=== PATIENT | female | born 1965 | race Caucasian/White ===

== ENCOUNTER 2018-07-17 03:25 | Outpatient (CLI) | payer OTHER, SELFPAY ==
[2018-07-17 11:10] LABS: Hemoglobin A1C 5.8 % (4.5-6.2)
== END 2018-07-17 03:26 ==
PROVIDERS: PCP Nurse Practitioner Family; Visit Provider Nurse Practitioner Family
DX: R73.03 Prediabetes (principal)
CPT/HCPCS: 36415; 83036

== ENCOUNTER 2018-09-20 11:54 | Emergency (ER) | payer OTHER, SELFPAY ==
[2018-09-20] VITALS (30 sets, daily range): BP systolic 85–150; BP diastolic 53–84; PULSE 67–82; RESP 9–26; TEMP 36; O2SAT 96–99
[2018-09-20] MEDS: Normal Saline 1,000 ML 1000 ML IV (12:35)
--- NOTE | 2018-09-20 12:37 | DI.CT_ITS ---
SYMPTOM/DIAGNOSIS: GALLO CT BRAIN: Noncontrast examination. No priors. A noncontrast cranial CT was performed. The ventricular system is normal in appearance. There is no evidence of an intracranial mass lesion. There is no evidence of a subdural or epidural hematoma. No focal areas of decreased attenuation are seen. CONCLUSION: Normal noncontrast Cranial CT.
--- NOTE | 2018-09-20 12:37 | W.ED.GENAD ---
Discharge Plan Disposition Patient Disposition: HOME Condition: Fair Discharge Details Chief Complaint: Headache Clinical Impression: Headache Reason For Visit: head ache Primary Care Provider: Carol Kruger ED Provider: Sparkle Espinoza Home Meds and New Rx's Prescriptions: New ondansetron HCl [Zofran] 4 mg tablet 4 mg PO QID PRN (Reason: nausea and vomiting) Qty: 10 RF: 0 Continue ibuprofen 200 MG capsule 200 mg PO PRN RF: 0 kwyaqlry-qvt-ZA-lycopen-lutein [Centrum Silver] 1 EACH tablet 1 ea PO DAILY RF: 0 fluticasone 16 GM spray,suspension 1 spray NS BID PRNQty: 1 RF: 0 levothyroxine 75 MCG tablet 75 mcg PO DAILY Qty: 90 RF: 1 levothyroxine 88 MCG tablet 88 mcg PO as directed Qty: 90 RF: 1 venlafaxine 75 MG capsule,extended release 24hr 2 cap PO DAILY Qty: 270 RF: 4 [id number]-LG-zjytmxkerwbxj [Day Multi-Symp Flu-Severe Cold] 10-20-500 mg Powder In Packet RF: 0 Discharge Instructions Instructions: General Headache (ED) Additional Instructions: Encourage hydration. Tylenol and/or ibuprofen as needed for discomfort. Your next due for ibuprofen 9 PM. Zofran as prescribed to help with nausea or vomiting if this recurs. Please follow-up with your primary care this week to discuss her headaches. As discussed, if you develop new or worsening symptoms such as inability to stay hydrated, increased pain, fevers or chills, increased pain with movement of her neck or other new/worsening symptoms please seek care immediately once again. Stand Alone Forms: Work Release Referrals: Carol Kruger NP [Primary Care Provider] - Discharge Data Discharge Date/Time-TO BE ENTERED AT DEPARTURE: 09/20/18 17:13 Medical Decision Making Patient is a 53-year-old female, accompanied by significant other, with chief complaint of headache. She reports that she has had severe headache like this previously. States that headache began 2-3 days ago. She reports she stood up from a headache had a fairly sudden onset and progressively increase. Reports is been constant since that time. States that typically she uses ibuprofen for headache which works well for discomfort. However, despite this effort at this point she is not having success in alleviating her symptoms. She also endorsing nausea. Denies any vomiting. Reports that she has had diarrhea but that this is a chronic issue Bernardo the past several years. Reports that her headache is mainly frontal and endorses photophobia and phonophobia. Reports that the pain radiates down into her neck. Denies any fevers or chills. No rash. No recent travel out of the country. On exam, pupils are equal round and reactive. Patient is moving all 4 extremities. She does appear uncomfortable. She appears dehydrated. Is currently endorsing nausea. Diphenhydramine is listed as an allergy. However, patient reports that this causes a large amount of fatigue and is agreeable to taking this at this time if it will help with her headache. Patient will be given Reglan and Benadryl. We will hold off on Toradol until after CT scan has been obtained. Given the radiation of pain into her neck, I also considered possible diagnosis of meningitis on the patient does not appear acutely ill. Rather, she just appears uncomfortable. She is afebrile and reports she is been afebrile at home. Vital signs notable for some hypertension with a blood pressure 150/81. 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 She is status post hysterectomy. EKG reviewed by Dr. Parker. Patient is in normal sinus rhythm with a rate of 72. Advised no acute ischemic changes noted. Limited evaluation without significant abnormality. CT reviewed by radiologist. Advised no acute hemorrhage, no mass-effect, no acute intracranial pathology Discussed findings with the patient and her . At this point, she is sitting up with her eyes more open and is speaking quite clearly with more vigor. She reports that the Reglan and Benadryl did seem to help with her headache. Reports that her pain is now to a 7 out of 10 set of a 10 out of 10, nausea has completely subsided. The CT did not show any acute pathology, will give Toradol. Discussed LP with the patient as I am concerned for possible infectious source given her neck pain versus bleeding given the sudden onset. However, the patient is now able to clarify more for me. She reports that she has had headaches like this previously. States that many of them have come on much more abruptly than the one she is currently experiencing. Reports that during 1 of these episodes, she had previous LP with no abnormality noted. Patient reports that she is afebrile. States that typically her headache often starts with posterior neck pain that comes up the back of the head and then wraps around. No nuchal rigidity on exam. Again, patient appears nontoxic. We will augment her medication with Toradol and reassess. After Toradol, patient is requesting discharge. Feels much improved. Again, we discussed risk versus benefits of lumbar puncture and patient continues to feel that she does not need this at this time. However, she lives locally with her is able to seek care immediately if she develops any new or worsening symptoms. He was given strict return precautions. Encouraged hydration. She will continue with Tylenol and/or ibuprofen as needed for discomfort. Will prescribe Zofran as this worked well for her nausea. All of her questions and concerns were addressed and she is in agreement with this plan. HPI General Mode of arrival: ambulatory. Date/Time Provider Initiated Documentation: 09/20/18 12:02. Limitations to Documentation: no limitations. Information obtained by: patient and family. History of Present Illness 53 year old F presents to the emergency department with the chief complaint of headache, described as severe, with intensity rated at 10. Quality is described as sharp, and is localized to the head. Patient neck. Patient started experiencing this day(s) (2) and it has been constant. No relieving factors improve symptom(s), No exacerbating factors reported . Patient notes headaches, loss of appetite and nausea/vomiting (endorses nausea, no vomiting); denies chest pain, cough, diaphoresis, fever/chills, malaise, rash, seizure, shortness of breath and syncope. Patient did receive the following treatments prior to arrival, NSAID Related Data Home Medications Medication Instructions Recorded Confirmed ibuprofen 200 mg PO PRN 05/21/16 09/20/18 iwzvqkcm-xpy-MA-lycopen-lutein 1 ea PO DAILY 08/14/17 09/20/18 [Centrum Silver] fluticasone 1 spray NS BID PRN #1 bottle 01/15/18 09/20/18 levothyroxine 75 mcg PO DAILY #90 tab-cap 02/04/18 09/20/18 levothyroxine 88 mcg PO as directed #90 tab-cap 02/04/18 09/20/18 venlafaxine 2 cap PO DAILY #270 tab-cap 07/15/18 09/20/18 ondansetron HCl [Zofran] 4 mg PO QID PRN #10 tab 09/20/18 [id number]-SC-cuhvmfoascbfb 09/20/18 [Day Multi-Symp Flu-Severe Cold] Previous Rx's Medication Instructions Recorded levothyroxine 75 mcg PO DAILY #90 tab-cap 02/04/18 levothyroxine 88 mcg PO as directed #90 tab-cap 02/04/18 venlafaxine 2 cap PO DAILY #270 tab-cap 07/15/18 ondansetron HCl [Zofran] 4 mg PO QID PRN #10 tab 09/20/18 Allergies Allergy/AdvReac Type Severity Reaction Status Date / Time diphenhydramine HCl AdvReac Mild can't Unverified 09/20/18 12:05 [From Balta] function General Stated Complaint: Nausea/Vomit/Diar BRIONNA: 3 Review of Systems Constitutional Reports as per HPI, Denies chills, Reports fatigue, Denies fever(s), Reports headache(s), Reports poor appetite and Denies weakness Eyes Denies blurry vision, Denies change in vision, Denies floaters and Denies loss of vision ENT Denies vertigo, Denies dizziness, Reports headache(s) and Reports neck pain Cardiovascular Reports as per HPI, Denies chest pain and Denies syncope Respiratory Reports as per HPI, Denies chest congestion and Denies cough Gastrointestinal Reports as per HPI, Denies abdominal pain, Denies change in bowel habits, Reports nausea and Denies vomiting Genitourinary Denies system reviewed and no additional complaints, except as docu (denies any change in urinary habits) Musculoskeletal Reports as per HPI, Denies abnormal gait, Denies back pain, Reports neck pain, Denies numbness and Denies tingling Integumentary/Breasts Reports as per HPI and Denies rash Neurologic Reports as per HPI, Denies abnormal movements, Denies abnormal speech, Denies abnormal gait, Denies vertigo, Denies dizziness, Denies syncope, Reports headache(s), Denies focal weakness, Denies loss of vision, Denies numbness, Denies radicular pain, Denies tingling and Denies weakness Endocrine Reports fatigue PFSH Family History Mother Essential hypertension Alzheimer disease IBS (irritable bowel syndrome) Father Neoplasm Sister No problems noted. Brother Essential hypertension Grandfather No problems noted. Grandfather Neoplasm Grandmother Neoplasm Grandmother Diabetes Son No problems noted. 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 pets and animals: Yes pets and animals: cat(s), dog(s) and farm animals frequency: 3-4 times per week duration: 45-60 minutes/day Smoking/Tobacco Use Status: Never second hand exposure: No alcohol intake: current alcohol intake frequency: holidays/special occasions only substance use type: does not use hernan/restoration: Zoroastrianism special hernan needs: No seatbelt use: always helmet use: Yes helmet use: always Surgical History Cholecystectomy Colonoscopy - IV Sedation (07/31/16) EGD - IV Sedation (07/31/16) Hysterectomy, Laparoscopic Supracervical (~2008) KNEE SURGERY Exam Const General: cooperative, healthy appearing, uncomfortable (patient appears nauseated and uncomfortable), no acute distress, well developed and well groomed Nutritional Appearance: average body habitus and well nourished Orientation: alert, awake and oriented x3 HENMT Head: normal to inspection, normocephalic, atraumatic, no Reddy's sign, no hematomas and no occipital foramen tenderness Ears: hearing grossly normal bilaterally, external ears normal and TM's normal bilaterally General nose exam: external nose normal and nares normal Face and sinus: normal facial exam and sinuses nontender Mouth: oral mucosae normal, lip normal, tongue normal and oropharynx normal Teeth and gingiva: dentition normal Throat: posterior oropharynx normal Eyes General: appearance normal, both eyes and all related structures Alignment and Position: alignment normal Periorbital: periorbital findings normal Eyelids: eyelids normal Conjunctivae: conjunctivae normal Pupils: PERRL EOM: EOM intact bilaterally Neck Neck: normal visual inspection, full ROM, no lymphadenopathy, no meningeal signs, trachea midline and supple Resp Effort & Inspection: normal respiratory effort, able to speak in complete sentences and no respiratory distress Auscultation: clear to auscultation bilaterally, no rales, no rhonchi and no wheezes Cardio Rate: regular rate Rhythm: regular rhythm Heart Sounds: S1 normal and S2 normal GI Inspection: normal to inspection Palpation: soft, no hepatosplenomegaly, not firm, no guarding, not rigid and nontender Auscultation: normal bowel sounds Back/Spine/Pelvis Cervical Spine: cervical ROM normal and No cervical spinal tenderness Skin General skin exam: no rashes or lesions noted Trauma: no lacerations or abrasions Neuro General: alert, awake, oriented x3, gait normal, tone normal, moves all extremities, no meningeal signs, no focal motor deficits, CN's II-XI intact bilaterally and deep tendon reflexes 2+ bilaterally Cranial Nerves: CN's II-XI intact bilaterally, PERRL, accommodation normal, EOM intact bilaterally, no nystagmus and facial strength normal Cognition: normal cognition Speech: speech normal Gait: normal gait Motor: muscle tone normal throughout and strength 5/5 throughout Sensory Exam: no sensory deficits noted Coordination: onrlzb-ub-gaes test normal and cnhq-zn-rgeo test normal Extrem General: no pedal edema and no calf tenderness Psych Appearance: grossly normal and well kempt Mental Status: mental status grossly normal Speech and Movement: speech and movement normal Course Vital Signs Temperature 36 C L 09/20/18 12:02 Pulse 79 09/20/18 12:02 Respiratory Rate 18 09/20/18 12:02 Blood Pressure 150/81 H 09/20/18 12:02 Pulse Oximetry 99 09/20/18 12:02 Temperature 36 C L 09/20/18 12:02 Temperature Source Temporal Artery Scan 09/20/18 12:02 Pulse 79 09/20/18 12:02 Respiratory Rate 18 09/20/18 12:02 Blood Pressure 150/81 H 09/20/18 12:02 Pulse Oximetry 99 09/20/18 12:02 Oxygen Delivery Method Room Air 09/20/18 12:02 Oxygen Flow Rate 0 09/20/18 12:02
[2018-09-20 12:49] LABS: Abs Immature Grans 0.01 k/cumm (0.0-0.09); Absolute Lymphocyte Count 0.99 k/cumm (1.2-3.4); Absolute Monocyte Count 0.23 k/cumm (0.11-0.7); Absolute Neutrophil Count 3.84 k/cumm (1.2-6.7); HCT 41.8 % (36.0-46.0); HGB 14.2 g/dL (12.0-15.5); Immature Grans % 0.2; Lymphocytes % 19.5; Mean Corpuscular Hemoglobin 31.1 pg (27.0-33.0); Mean Corpuscular Volume 91.5 fL (80-95); Mean Platelet Volume 8.6 fL (8.0-11.0); Monocytes % 4.5; Neutrophils % 75.8; Platelet Count 254 x1000/uL (130-400); RBC 4.57 m/cumm (4.00-5.20); RBC Distribution Width 13.2 % (11.7-14.6); White Blood Cell Count 5.07 k/cumm (4.4-10.8)
[2018-09-20] MEDS: Dexamethasone 10 MG/ML VIAL IVP (12:50)
[2018-09-20] MEDS: Metoclopramide 10 MG/2 ML VIAL IVP (12:55)
[2018-09-20] MEDS: diphenhydrAMINE 50 MG/ML VIAL 25 MG IVP (13:00)
[2018-09-20 13:03] LABS: INR 1.1 (1.0-3.5); PTT Activated 22.4 sec (21.0-31.4); Prothrombin Time 10.8 sec (9.3-10.8)
[2018-09-20 13:04] LABS: ALT 42 U/L (12-78); AST 24 U/L (15-37); Albumin 3.5 g/dL (3.4-5.0); Alkaline Phosphatase 132 U/L (46-116); Anion Gap 11.5 mmol/L (3-11); BUN 11 mg/dL (7-18); Bilirubin, Total 0.4 mg/dL (0.2-1.0); CO2 24.5 mmol/L (21.0-32.0); CREATININE 0.73 mg/dL (0.55-1.02); Calcium 9.2 mg/dL (8.5-10.1); Chloride 102 mmol/L (98-107); Glucose 137 mg/dL (70-100); Potassium 3.7 mmol/L (3.5-5.1); Sodium 138 mmol/L (136-145); Total Protein 7.7 g/dL (6.4-8.2)
--- NOTE | 2018-09-20 13:47 | DI.VRAD_ITS ---
EXAM: CT Head Without Intravenous Contrast EXAM DATE/TIME: 09/20/2018 12:37 PM CLINICAL HISTORY: 53 years old, female; Pain; Headache; Headache not specified TECHNIQUE: Axial computed tomography images of the head/brain without intravenous contrast. Coronal and sagittal reformatted images were created and reviewed. COMPARISON: No relevant prior studies available. FINDINGS: No evidence of hemorrhage. No mass effect. No acute intracranial abnormality. IMPRESSION: No evidence of acute intracranial process. Dictated and Authenticated by: Jono Esqueda MD. Ordering:CHEY KONG MD
[2018-09-20] MEDS: Ketorolac 30 MG/ML VIAL IVP (14:38)
== END 2018-09-20 17:13 | disposition home or self-care (01) ==
PROVIDERS: Emergency Provider Physician Assistant; PCP Nurse Practitioner Family
DX: R51 Headache (principal); R11.0 Nausea; H53.149 Visual discomfort, unspecified; R03.0 Elevated blood-pressure reading, without diagnosis of hypertension
CPT/HCPCS: 36415; 80053; 93005; 96361; 96374; 96375; 99285; 70450; 85025; 85610; 85730; 93010; J1100; J1200; J1885; J2765

== ENCOUNTER 2018-09-23 12:19 | Outpatient (CLI) | payer OTHER, SELFPAY ==
--- NOTE | 2018-09-23 12:02 | DI.RAD_ITS ---
SYMPTOMS/DIAGNOSIS: NECK PAIN, HEADACHE, CERVICALGIA, R51, M54.2 CERVICAL SPINE: There is straightening of the normal cervical lordosis. The vertebral bodies are intact. Disc space narrowing, discogenic sclerosis and hypertrophic spurring are identified most advanced at C 5 - 6 and C 6 - 7. There is posterior bony spurring bilaterally at C 5 - 6. The findings most severe on the right side. The posterior elements appear intact. The odontoid is intact and is closely applied to the anterior arch of C 1. SUMMARY: Degenerative changes as noted above. If there is further specific clinical question regarding the possibility of spinal stenosis in this patient, then further evaluation with an MRI could be considered.
[2018-09-23 13:51] LABS: C-Reactive Protein 0.16 mg/dL (0.0-0.3)
[2018-09-23 13:56] LABS: ESR 26 MM/HR (0-30)
[2018-09-24 10:37] LABS: Lyme Ab w Rflx to Lyme Confirm Negative
[2018-09-25 01:34] LABS: Anaplasma phagocytophilum Negative (Negative); B. miyamotoi PCR Negative (Negative); Babesia divergens/MO-1 Negative (Negative); Babesia duncani Negative (Negative); Babesia microti Negative (Negative); Ehrlichia chaffeensis Negative (Negative); Ehrlichia ewingii/canis Negative (Negative); Ehrlichia muris eauclairensis Negative (Negative)
[2018-09-25 11:32] LABS: IgA 428 mg/dL (85-499); Interpretation SEE COMMENTS; Tissue Transglutaminase IgA <1.2 U/mL (<4.0)
== END 2018-09-23 12:39 ==
PROVIDERS: PCP Nurse Practitioner Family; Visit Provider Internal Medicine
DX: M54.2 Cervicalgia (principal); R51 Headache; M50.322 Other cervical disc degeneration at C5-C6 level; R19.7 Diarrhea, unspecified
CPT/HCPCS: 36415; 82784; 83516; 85652; 72050; 86140; 86618; 87798

== ENCOUNTER 2018-09-23 12:34 | Outpatient (REF) | payer OTHER, SELFPAY ==
[2018-09-24 11:44] LABS: Campylobacter PCR SEE COMMENTS; Salmonella PCR SEE COMMENTS; Shiga Toxin PCR SEE COMMENTS; Shigella/Enteroinvasive Ecoli SEE COMMENTS
== END 2018-09-23 12:54 ==
LOC: LBN 12:34
PROVIDERS: PCP Nurse Practitioner Family; Visit Provider Internal Medicine
DX: R19.7 Diarrhea, unspecified (principal)
CPT/HCPCS: 87329; 87505; 87177

== ENCOUNTER 2018-11-04 00:57 | Outpatient (CLI) | payer OTHER, SELFPAY ==
--- NOTE | 2018-11-04 07:06 | DI.CT_ITS ---
SYMPTOMS/DIAGNOSIS: ABD BLOATING, UPPER ABD PAIN X 6 MONTHS, R14.0, R10.[address]: The study was conducted according to the usual protocol with intravenous administration of 100 cc's of Omnipaque 350. Oral contrast material was also administered. The lung bases are unremarkable. There is no pleural effusion. The liver is unremarkable. The patient is status post cholecystectomy. There is no evidence of ductal dilatation. The pancreas, spleen, kidneys and adrenals are unremarkable. There is no evidence of bowel obstruction. No focal bowel abnormality is seen and there are no findings to suggest an acute appendix. There is no evidence of free air or free fluid in the intraperitoneal space. The bladder is intact. The reproductive organs are unremarkable as visualized. There is no evidence of an aortic aneurysm. No focal bony abnormality is seen. There are facet joint degenerative changes in the lower lumbar spine. SUMMARY: No acute abnormality is identified. The examination is essentially unremarkable in this patient who is status post cholecystectomy.
[2018-11-04] MEDS: Omnipaque 350 MG/ML 50 ML BTL PO (08:08)
[2018-11-04] MEDS: Breeza Beverage 473 ML BTL PO (08:09)
[2018-11-04] MEDS: Omnipaque 350 MG/ML 100 ML BTL IJ (08:39)
== END 2018-11-04 01:17 ==
PROVIDERS: PCP Nurse Practitioner Family; Visit Provider Nurse Practitioner Family
DX: R10.10 Upper abdominal pain, unspecified (principal); R14.0 Abdominal distension (gaseous); Z90.49 Acquired absence of other specified parts of digestive tract
CPT/HCPCS: 74177; J3490; Q9967

== ENCOUNTER 2019-01-14 02:16 | Outpatient (CLI) | payer OTHER, SELFPAY ==
[2019-01-14 11:23] LABS: ALT 38 U/L (12-78); AST 26 U/L (15-37); Albumin 3.7 g/dL (3.4-5.0); Alkaline Phosphatase 128 U/L (46-116); BUN 9 mg/dL (7-18); Bilirubin, Total 0.3 mg/dL (0.2-1.0); CREATININE 0.85 mg/dL (0.55-1.02); Calcium 9.3 mg/dL (8.5-10.1); Chloride 106 mmol/L (98-107); Cholesterol 211 mg/dL (50-200); Glucose 99 mg/dL (70-100); HDL Cholesterol 48 mg/dL (40-60); LDL CHOLESTEROL 123 mg/dL (<100); Potassium 4.6 mmol/L (3.5-5.1); Sodium 142 mmol/L (136-145); TSH 6.31 uIU/mL (0.358-3.74); Total Protein 7.4 g/dL (6.4-8.2); Triglyceride 217 mg/dL (30-150)
[2019-01-14 11:41] LABS: FREE T4 1.07 ng/dL (0.76-1.46)
== END 2019-01-14 02:36 ==
PROVIDERS: PCP Nurse Practitioner Family; Visit Provider Nurse Practitioner Family
DX: E03.9 Hypothyroidism, unspecified (principal); R73.03 Prediabetes; E78.5 Hyperlipidemia, unspecified
CPT/HCPCS: 36415; 80053; 80061; 83721; 83036; 84439; 84443

== ENCOUNTER 2019-01-27 00:46 | Outpatient (CLI) | payer OTHER, SELFPAY ==
--- NOTE | 2019-01-27 08:38 | DI.RAD_ITS ---
SYMPTOMS/DIAGNOSIS: LEFT SHOULDER PAIN > 3 MO, LIMITED RANGE OF MOTION, M25.512 LEFT SHOULDER: The bony structures are normally mineralized. The glenohumeral joint appears normal. There are mild degenerative changes involving the AC joint. There is no evidence of a fracture or dislocation.
--- NOTE | 2019-01-27 11:30 | DI.MAMMO_ITS ---
SYMPTOMS/DIAGNOSIS: SCREENING, Z12.31 MAMMOGRAMS: Mammograms were interpreted according to the usual protocol including computer analysis with CAD system, tomosynthesis and C view imaging. The breast tissue is heterogeneously radiodense, which lowers the sensitivity of the examination. There is a radiodensity in the lateral portion of the left breast, which appears to contain some small calcifications. This finding is noted on the craniocaudad image of the left breast. There is no evidence of a suspicious calcification in the right breast. SUMMARY: Question interval development of a small area of nodularity in the lateral portion of the left breast. Further evaluation with a magnification craniocaudad compression spot film and ultrasound is recommended. Category 0, breast density category C. MQSA ASSESSMENT OF FINDINGS: Incomplete: Needs additional imaging evaluation. Category 0. Patient will receive a letter notifying them of these results. Bi-RADS category C. The breasts are heterogeneously dense, which may obscure small masses.
== END 2019-01-27 01:06 ==
PROVIDERS: PCP Nurse Practitioner Family; Visit Provider Nurse Practitioner Family
DX: Z12.31 Encounter for screening mammogram for malignant neoplasm of breast (principal); R92.8 Other abnormal and inconclusive findings on diagnostic imaging of breast; M25.512 Pain in left shoulder; M19.012 Primary osteoarthritis, left shoulder; M25.812 Other specified joint disorders, left shoulder
CPT/HCPCS: 77063; 77067; 73030

== ENCOUNTER 2019-01-29 01:23 | Outpatient (CLI) | payer OTHER, SELFPAY ==
--- NOTE | 2019-01-29 14:10 | DI.MAMMO_ITS ---
SYMPTOMS/DIAGNOSIS: F/U MAMMO, RADIODENSITY IN LATERAL PORTION LT BREAST, ? SMALL AREA OF NODULARITY ADDITIONAL VIEWS OF THE LEFT BREAST: A CC magnification view of the lateral aspect of the left breast was performed for a questioned area of nodularity. No persistent area of abnormality or change is seen. The findings are consistent with overlying fibroglandular tissue. IMPRESSION: Category I, negative mammogram. Yearly screening mammography is recommended. Breast density C. MQSA ASSESSMENT OF FINDINGS: Negative. Category 1. Patient will receive a letter notifying them of these results. Bi-RADS category C. The breasts are heterogeneously dense, which may obscure small masses.
== END 2019-01-29 01:43 ==
PROVIDERS: PCP Nurse Practitioner Family; Visit Provider Nurse Practitioner Family
DX: Z12.31 Encounter for screening mammogram for malignant neoplasm of breast (principal); R92.8 Other abnormal and inconclusive findings on diagnostic imaging of breast; N64.59 Other signs and symptoms in breast
CPT/HCPCS: 77063; 77067

== ENCOUNTER 2019-02-17 09:03 | Outpatient (CLI) | payer OTHER, SELFPAY ==
[2019-02-17 10:35] LABS: FREE T4 1.01 ng/dL (0.76-1.46); TSH 4.18 uIU/mL (0.358-3.74)
== END 2019-02-17 09:23 ==
PROVIDERS: PCP Nurse Practitioner Family; Visit Provider Nurse Practitioner Family
DX: E03.9 Hypothyroidism, unspecified (principal)
CPT/HCPCS: 36415; 84439; 84443

== ENCOUNTER 2019-03-31 13:59 | Outpatient (CLI) | payer OTHER, SELFPAY ==
--- NOTE | 2019-03-31 13:56 | DI.RAD_ITS ---
SYMPTOM/DIAGNOSIS: BILAT HAND PAIN RIGHT HAND: Three views were obtained. No bony or soft tissue abnormality is seen. LEFT HAND: Three views were obtained. There are minimal degenerative changes of the IP joint of the thumb. No other significant abnormality is seen.
== END 2019-03-31 14:19 ==
PROVIDERS: PCP Nurse Practitioner Family; Visit Provider Physician Assistant
DX: M79.641 Pain in right hand (principal); M79.642 Pain in left hand; M19.042 Primary osteoarthritis, left hand
CPT/HCPCS: 73130

== ENCOUNTER 2019-04-16 08:00 | Outpatient (CLI) | payer OTHER, SELFPAY ==
[2019-04-16 16:40] LABS: FREE T4 1.23 ng/dL (0.76-1.46); TSH 3.43 uIU/mL (0.358-3.74)
== END 2019-04-16 08:20 ==
PROVIDERS: PCP Nurse Practitioner Family; Visit Provider Nurse Practitioner Family
DX: E03.9 Hypothyroidism, unspecified (principal)
CPT/HCPCS: 36415; 84439; 84443

== ENCOUNTER 2019-04-28 00:14 | Outpatient (CLI) | payer OTHER, SELFPAY ==
--- NOTE | 2019-04-28 09:25 | DI.MRI_ITS ---
SYMPTOM/DIAGNOSIS: CONTINUED LT SHOULDER DISCOMFORT, LT SHOULDER TENDINITIS, M75.22, DECREASED RANGE OF MOTION LEFT SHOULDER MRI: Routine noncontrast examination was performed. There are no priors for comparison. There is intermediate signal seen in the supraspinatus tendon consistent with tendinosis. There is increased signal seen on the bursal surface of the supraspinatus tendon suspicious for a partial tear. The infraspinatus, teres minor and subscapularis tendons are intact. The rotator cuff muscles show normal signal and size. No significant muscular fatty atrophy is present. The biceps tendon has a normal appearance and location. The glenoid labrum is intact. The articular cartilage at the glenohumeral joint is unremarkable. The ligaments appear intact. There is a small amount of fluid in the joint space. There is a small amount of fluid seen in the subacromial subdeltoid bursa. There are mild hypertrophic changes seen at the acromioclavicular joint. Marrow signal shows no evidence of an occult fracture or avascular necrosis. No evidence of a soft tissue mass is appreciated. IMPRESSION: Supraspinatus tendinosis. Findings suggestive of a small bursal surface partial tear of the supraspinatus tendon. Subdeltoid bursitis. Mild degenerative changes of the acromioclavicular joint.
== END 2019-04-28 00:34 ==
PROVIDERS: PCP Nurse Practitioner Family; Visit Provider Student in an Organized Health Care Education/Training Program
DX: M25.512 Pain in left shoulder (principal); S46.902A Unspecified injury of unspecified muscle, fascia and tendon at shoulder and upper arm level, left arm, initial encounter; M75.52 Bursitis of left shoulder; M19.012 Primary osteoarthritis, left shoulder
CPT/HCPCS: 73221

== ENCOUNTER 2020-05-03 03:18 | Outpatient (CLI) | payer OTHER, SELFPAY ==
[2020-05-03 09:24] LABS: Anion Gap 8.6 mmol/L (3-11); BUN 12 mg/dL (7-18); CO2 28.4 mmol/L (21.0-32.0); CREATININE 0.98 mg/dL (0.55-1.02); Calcium 9.3 mg/dL (8.5-10.1); Chloride 105 mmol/L (98-107); Estimated GFR 58.71 (mL/min/1.73m2); FREE T4 1.03 ng/dL (0.76-1.46); Glucose 123 mg/dL (74-106); Potassium 3.9 mmol/L (3.5-5.1); Sodium 142 mmol/L (136-145); TSH 4.16 uIU/mL (0.36-3.74)
[2020-05-03 11:56] LABS: Calculated LDL 155 mg/dL (<100); Cholesterol 239 mg/dL (<200); HDL Cholesterol 46 mg/dL (40-60); Triglyceride 193 mg/dL (<150)
== END 2020-05-03 03:38 ==
PROVIDERS: PCP Nurse Practitioner Family; Visit Provider Nurse Practitioner Family
DX: E78.5 Hyperlipidemia, unspecified (principal); E03.9 Hypothyroidism, unspecified
CPT/HCPCS: 36415; 80048; 80061; 84439; 84443

== ENCOUNTER 2020-06-14 01:42 | Outpatient (CLI) | payer OTHER, SELFPAY ==
--- NOTE | 2020-06-14 08:41 | DI.MAMMO_ITS ---
EXAM: MAMMO SCREENING CLINICAL HISTORY: screening,Z12.39 TECHNIQUE: Mammograms were interpreted according to the usual protocol including computer analysis w ith CAD system, tomosynthesis and C-view imaging. COMPARISON: 2011 through 2018 FINDINGS: The breasts are composed of heterogeneously dense fibroglandular densities, Breast Density category C . No suspicious masses or suspicious microcalcifications are seen. No skin thickening or abnormal axillary lymph nodes are seen. There has been no significant change from prior exams. IMPRESSION: BI-RADS Category 1: Negative mammogram. Yearly screening mammography is recommended. Breast Density Category C, heterogeneously dense tissue which decreases the sensitivity of the mammog [place]. The mammogram demonstrates the patient's breast tissue is dense. Dense breast tissue is very common a nd is not abnormal but dense breast tissue can make it harder to find cancer on a mammogram. Also, de nse breast tissue may increase breast cancer risk. This information about the result of the mammogram report was provided to the patient to raise their awareness. Use this report when you speak with the patient about their risks for breast cancer, which includes their family history. At that time, you may recommend additional screening tests (Ultrasound or MRI) as they might be useful based on their r isk. A negative radiographic report should not delay biopsy if a dominant or clinically suspicious mass is present. Up to ten percent of cancers are not identified on mammography. A negative report may reinforce clinical impression. Adenosis and dense breasts may obscure an underlying neoplasm. False positive reports average 6 to 10%.
== END 2020-06-14 02:02 ==
PROVIDERS: PCP Nurse Practitioner Family; Visit Provider Nurse Practitioner Family
DX: Z12.31 Encounter for screening mammogram for malignant neoplasm of breast (principal); R92.2 Inconclusive mammogram
CPT/HCPCS: 77063; 77067

== ENCOUNTER 2021-06-18 02:12 | Outpatient (CLI) | payer OTHER, SELFPAY ==
[2021-06-18 12:42] LABS: HCT 43.2 % (36.0-46.0); MCH 30.9 pg (27.0-33.0); MCHC 32.4 % (32.0-36.0); MCV 95.4 fL (80-95); MPV 8.8 fL (8.0-11.0); Platelet Count 301 10^3/uL (130-400); RBC 4.53 10^6/uL (3.93-5.22); RDW 12.7 % (11.7-14.6); RDW-SD 44.4 fL; WBC 5.14 10^3/uL (4.4-10.8)
[2021-06-18 13:10] LABS: Anion Gap 9.2 mmol/L (3-11); BUN 11 mg/dL (7-18); CO2 27.8 mmol/L (21.0-32.0); CREATININE 0.9 mg/dL (0.55-1.02); Calcium 9.5 mg/dL (8.5-10.1); Calculated LDL 185 mg/dL (<100); Chloride 105 mmol/L (98-107); Cholesterol 272 mg/dL (<200); Glucose 104 mg/dL (74-106); HDL Cholesterol 51 mg/dL (40-60); Potassium 4.6 mmol/L (3.5-5.1); Sodium 142 mmol/L (136-145); TSH 2.35 uIU/mL (0.36-3.74); Triglyceride 184 mg/dL (<150)
[2021-06-18 13:35] LABS: FREE T4 0.98 ng/dL (0.76-1.46)
== END 2021-06-18 02:13 | disposition home or self-care (01) ==
LOC: LOS 02:13
PROVIDERS: PCP Nurse Practitioner Family; Visit Provider Nurse Practitioner Family
DX: E03.9 Hypothyroidism, unspecified (principal); E78.5 Hyperlipidemia, unspecified
CPT/HCPCS: 36415; 80048; 80061; 85027; 84439; 84443

== ENCOUNTER 2021-07-24 02:36 | Outpatient (CLI) | payer OTHER, SELFPAY ==
--- NOTE | 2021-07-24 06:30 | DI.RAD_ITS ---
Exam(s) XR KNEE RT 3V AP,LAT,ALFREDITO EXAM: XR KNEE RT 3V AP,LAT,ALFREDITO CLINICAL HISTORY: Right knee pain x 1mo, yang's cyst?,M25.561. TECHNIQUE: 2D digital imaging was performed. COMPARISON: CR LEFT KNEE LIMITED 1 OR 2 VIEWS from 11/26/2017 FINDINGS: BONES: No acute fracture is present. No bony destructive lesion is seen. JOINTS: The knee is normally aligned. No joint effusion is seen. Mild narrowing of the medial femor al tibial joint space. Mild spurring at the articular aspect of the patella. SOFT TISSUE: Normal. IMPRESSION: Mild degenerative changes. DATA REPOSITORY: RADIATION DOSE DELIVERED:
== END 2021-07-24 02:56 ==
PROVIDERS: PCP Nurse Practitioner Family; Visit Provider Nurse Practitioner Family
DX: M25.561 Pain in right knee (principal)
CPT/HCPCS: 73562

== ENCOUNTER 2021-08-02 01:48 | Outpatient (CLI) | payer OTHER, SELFPAY ==
--- NOTE | 2021-08-02 10:00 | DI.MAMMO_ITS ---
Exam(s) MAMMO SCREENING EXAM: MAMMO SCREENING CLINICAL HISTORY: screening,Z12.39 TECHNIQUE: Bilateral full field digital CC and MLO mammographic images were obtained with 3D tomosyn thesis and utilizing computer aided detection (CAD). COMPARISON: Available for comparison. FINDINGS: Masses/Architectural Distortion: There is a focal asymmetry in the central left breast seen on the cr aniocaudad view. Microcalcifications: No suspicious pleomorphic-type are seen. Skin Thickening/Nipple Retraction: None. IMPRESSION: 1. Focal asymmetry in the central left breast seen on the craniocaudad view. 2. This area should be further evaluated with a spot compression view. Ultrasound may be indicated a t that time. BI-RADS Category 0 - Assessment Incomplete: Need additional imaging evaluation Breast Density - Category C - Heterogeneously dense Breast density category C or D implies that the patient has dense breast tissue. Dense breast tissue is very common and is not abnormal but dense breast tissue can make it harder to find cancer on a ma mmogram. Also, dense breast tissue may increase their breast cancer risk. This information about the result of the mammogram report was provided to the patient to raise their awareness. Use this report when you speak with the patient about their risks for breast cancer, which includes their family hist ory. At that time, you may recommend for more screening tests (Ultrasound or MRI) as they might be us eful based on their risk. A negative radiographic report should not delay biopsy if a dominant or clinically suspicious mass is present. Up to ten percent of cancers are not identified on mammography. A negative report may reinforce clinical impression. Adenosis and dense breasts may obscure an underlying neoplasm. False positive reports average 6 to 10%. Patient will receive a letter notifying them of these results.
== END 2021-08-02 02:08 ==
PROVIDERS: PCP Nurse Practitioner Family; Visit Provider Nurse Practitioner Family
DX: Z12.31 Encounter for screening mammogram for malignant neoplasm of breast (principal); R92.8 Other abnormal and inconclusive findings on diagnostic imaging of breast
CPT/HCPCS: 77063; 77067

== ENCOUNTER 2021-08-22 01:22 | Outpatient (CLI) | payer OTHER, SELFPAY ==
--- NOTE | 2021-08-22 | DI.MAMMO_ITS ---
Exam(s) MG MAMMO SCREEN CALL BACK UNI US BREAST LT LIMITED EXAM: MG MAMMO SCREEN CALL BACK UNI and U/S breast LT limited CLINICAL HISTORY: F/U MAMMO, FOCAL ASYMMETRY CENTRAL LT BREAST. TECHNIQUE: Craniocaudal and mediolateral oblique Full Field Digital Mammography views of the left br east with Computer Aided Diagnosis followed by Tomosynthesis and left breast ultrasound. COMPARISON: Priors available for comparison. FINDINGS: Mammography/Tomosynthesis: Masses/Architectural Distortion: None seen. Microcalcifictions: No suspicious pleomorphic-type are seen. Skin Thickening/Nipple Retraction: None. Left breast US: Echotexture: Normal appearance of the glandular tissue. Shadowing: No suspicious foci. Cyst: None. Solid lesions: None seen. Ductal dilation: None. IMPRESSION: 1. No evidence of malignancy is noted. 2. Unless there is more urgent need, follow-up screening mammography is recommended, as per [employer] guidelines. 3. The findings were discussed with the patient on the date of the examination. BI-RADS Category 1 - Negative Breast Density - Category C - Heterogeneously dense Breast density Category C or D implies that the patient has dense breast tissue. Dense breast tissue can make it harder to find cancer on a mammogram. Dense breast tissue is also associated with an incr eased risk of breast cancer. This information about the result of the mammogram report was provided to the patient to raise their awareness. Use this report when you speak with the patient about their risks for breast cancer, which includes their family history. At that time, you may recommend additional screening tests (Ultrasoun d or MRI) as these tests may add significant information. A negative radiographic report should not delay biopsy if a dominant or clinically suspicious mass is present. Up to ten percent of cancers are not identified on mammography. A negative report may reinforce clinical impression. Adenosis and dense breasts may obscure an underlying neoplasm. False positive reports average 6 to 10%. Patient will receive a letter notifying them of these results.
== END 2021-08-22 01:42 ==
PROVIDERS: PCP Nurse Practitioner Family; Visit Provider Nurse Practitioner Family
DX: R92.8 Other abnormal and inconclusive findings on diagnostic imaging of breast (principal)
CPT/HCPCS: 76642; 77063; 77067

== ENCOUNTER 2022-01-28 01:18 | Outpatient (CLI) | payer OTHER, SELFPAY ==
[2022-01-28 12:30] LABS: Source Nasal/Nares
[2022-01-28 18:06] LABS: COVID-19 PCR Negative (Negative)
== END 2022-01-28 01:19 | disposition home or self-care (01) ==
LOC: LBO 01:18
PROVIDERS: PCP Nurse Practitioner Family; Visit Provider Surgery
DX: Z20.822 Contact with and (suspected) exposure to COVID-19 (principal); Z01.818 Encounter for other preprocedural examination
CPT/HCPCS: 87635

== ENCOUNTER 2022-01-29 10:01 | Day surgery (SDC) | payer OTHER, SELFPAY ==
--- NOTE | 2022-01-28 20:02 | W.COLOREPORT ---
Colonoscopy Report Date of procedure: 01/29/22 Pre-op diagnosis general: +family hx of CRC/hx of T.adenoma Post-op diagnosis procedure note: same Surgeon: Lexi Dill Anesthesia Type: General:No Airway Estimated blood loss (mL): 0 Pathology: none sent Complications: None Disposition: same day Prep: Miralax/Dulcolax Retraction Time: 9 mins Procedure Description: After informed consent was obtained the patient was taken to the procedure room and placed in a left decubitous position. Monitors were applied and a time out was done. The patients name, date of , procedure, allergies to medications and metal in their body was reviewed. The patient was then sedated. Once sedated and comfortable a rectal exam was done. External exam was normal. Internal exam revealed a normal sphincter tone and no palpable masses. The scope was then introduced and retrofelexed. no internal hemorrhoids were identified. The scope was then advanced to the cecum w/out difficulty. The TI and appendiceal orifice were identified. The prep was BBPS-3 in all segments (total 9). The scope was then slowly retracted over 9 minutes back into the rectum. There are no polyps/AVM's/diverticua visualized today. The mucosa is pink and healthy w/ normal vaculature. The scope was removed and the patient was woken up and taken back to Same day surgery in stable condition. The patient tolerated the procedure well and there were no immediate complications. Follow up: The patient should follow up in 5 years unless they develop changes in bowel habits or other new gastrointestinal complaints.
--- NOTE | 2022-01-28 20:03 | PDOC.DSDIS_ITS ---
Discharge Plan Disposition Patient Disposition: HOME Condition: Good Discharge Details Reason For Visit: colon scope Attending Provider: Lexi Dill Primary Care Provider: Carol Kruger Home Meds and New Rx's Prescriptions: Continued cholecalciferol (vitamin D3) 2,000 unit capsule 2,000 unit PO DAILY 0RF sertraline 50 mg tablet 50 mg PO DAILY Qty: 90 4RF Rx Instructions: Take 1 tab daily Centrum Silver 1 EACH tablet 1 ea PO DAILY 0RF fluticasone propionate 16 GM spray,suspension 1 spray NS BID PRNQty: 1 0RF Rx Instructions: miguel pot levothyroxine 88 mcg tablet 88 mcg PO DAILY Qty: 90 4RF Discontinued polyethylene glycol 3350 17 gram/dose powder 238 g PO ONCE Qty: 238 0RF Rx Instructions: take per colonoscopy instructions bisacodyl [Dulcolax (bisacodyl)] 5 mg tablet,delayed release (DR/EC) 5 mg PO ONCE Qty: 4 0RF Rx Instructions: take per colonoscopy instructions Discharge Instructions Additional Instructions: DSU Colonoscopy Post- Op Instructions Instructions for Everyone who is given Anesthesia: For your safety, please do the following for the next twenty-four (24) hours: *Do Not operate a motor vehicle (car, truck, motorcycle, etc.) *Do Not drink alcoholic beverages or use any recreational drugs for the first 24 hours or while taking pain medications. The medications in your body may have a reaction that can be dangerous. *Do Not make any important decisions or sign any important papers. Findings: normal today Follow up: repeat in 5 yrs time 1. No lifting over 20 pounds or strenuous activity for the first 24 hours after your procedure. After 24 hours there are no restrictions on your activity but you may feel fatigued for a few days. 2. After you arrive home you may have a light meal and return to your normal diet as you can tolerate it without feeling sick to your stomach. 3. You may have a bloated, gaseous feeling in your belly (abdomen) after a colonoscopy. Passing gas and belching will help. Walking or lying down on your left side with your knees flexed may relieve the discomfort. Call the office at [phone] (Office) or [phone] (Hospital) right away if you notice any of the following: a.Vomiting of blood or ?coffee ground stools?. b.Rectal bleeding 1Tbsp, blood clots or continuous bleeding. c.Severe belly (abdominal) pain. d.A hard distended belly (abdomen) and an inability to pass gas. 4. Please don?t expect to have a normal BM (bowel movement) for 2-3 days after your procedure. 5. If there are questions regarding the findings of your procedure, please contact your doctor 6. If you are unable to contact your doctor with a problem, contact the hospital at [phone]. 7. Continue all your regular medications unless directed otherwise. I understand the above instructions and have no questions. Signature of Patient or Adult Escort Name of Responsible Adult Escort Signature of Nurse Date/Time Activity:: see above Diet:: see above Discharge Orders Discharge Orders: Discharge Order (Routine); Ordered 01/28/22 Ordered By: Lexi Dill
[2022-01-29 10:26] VITALS: BP 126/89; PULSE 92; RESP 18; TEMP 36.1; O2SAT 98
[2022-01-29] MEDS: Lactated Ringers 1,000 ML 80 ML IV (10:43)
--- NOTE | 2022-01-29 10:56 | W.ANESPRE ---
General Info Date of Service Date Performed: 01/29/22 Height: 5 ft 3 in Weight: 78.4 kg Body Mass Index (BMI): 30.6 Surgical Procedure: Operation Date: 01/29/22 10:35 Proposed Procedure Side Surgeon min Dill, Meds Allergies and Home Medications Allergies Allergy/AdvReac Type Severity Reaction Status Date / Time diphenhydramine HCl AdvReac Mild can't Verified 01/29/22 10:31 [From Benadry] function Home Medication Medication Instructions Recorded hctcpvuu-zws-mhdny acid 0.4 1 ea PO DAILY 08/14/17 mg-lycopene 300 mcg-lutein 250 mcg tablet (Centrum Silver) fluticasone propionate 50 1 spray NS BID PRN #1 bottle 01/15/18 mcg/actuation nasal spray,suspension cholecalciferol (vitamin D3) 50 2,000 unit PO DAILY 04/29/19 mcg (2,000 unit) capsule sertraline 50 mg tablet 50 mg PO DAILY #90 tab 01/26/21 levothyroxine 88 mcg tablet 88 mcg PO DAILY #90 tab-cap 01/18/22 Current Visit Medications: Current Medications Generic Name Dose Route Start Last Admin Trade Name Freq PRN Reason Stop Dose Admin Hyoscyamine Sulfate 0.125 mg 01/28/22 20:04 Hyoscyamine 0.125 Mg Sl/Oral/Chew SL DIRECTED PRN Ringer's Solution 1,000 mls @ 80 mls/hr 01/29/22 06:00 01/29/22 10:43 IV 02/27/22 23:59 80 mls/hr INFUSION PATRICIA Administration IV Miscellaneous Supplies 1 each 01/29/22 06:00 Iv Access IV 02/27/22 23:59 DIRECTED PATRICIA Ondansetron HCl 4 mg 01/28/22 20:04 Ondansetron 4 Mg/2 Ml Vial IVP Q4H PRN PRN Nausea / Vomiting Sodium Chloride 0 ml 01/29/22 06:00 Normal Saline Flush 10 Ml Syr IV 02/27/22 23:59 PRN PRN Sodium Chloride 0 ml 01/29/22 06:00 Normal Saline 10 Ml Vial IJ 02/27/22 23:59 DIRECTED PRN Sterile Water 0 ml 01/29/22 06:00 Water,Injection,Sterile 10 Ml Vial IJ 02/27/22 23:59 DIRECTED PRN PFSH Active Problems Active Problems: Problem Status Onset Code Migraine headache without aura G43.009 Hypothyroidism E03.9 Hyperlipidemia E78.5 Obstructive sleep apnea G47.33 Irritable bowel syndrome K58.9 Allergic rhinitis J30.9 Essential tremor G25.0 Tubular adenoma of colon D12.6 Medical History Medical History Prediabetes Surgical History Surgical History History of esophagogastroduodenoscopy (07/31/16) S/P colonoscopy (07/31/16) S/P left knee arthroscopy (05/15/16) With microfracture of chondral lesion of medial femoral condyle and partial medial meniscectomy Status post cholecystectomy Status post laparoscopic supracervical hysterectomy (~2008) For AUB Tobacco Smoking/Tobacco Use Status: Never Passive smoking exposure: Yes Second hand exposure: Yes Alcohol Alcohol Intake: never Substance Use Substance use: Never Substance use type: does not use Prental History History 3 Para 2 Hx # Term Pregnancies Multiple births Hx # Pregnancies Ectopic pregnancies AB induced Hx Number of Living Children 2 AB spontaneous 1 Vital Signs and Lab Results Vital Signs Most Recent Vital Signs in EMR: Most Recent Vital Signs Temp Pulse Resp BP Pulse Ox 36.1 C L 92 H 18 126/89 98 01/29/22 10:26 01/29/22 10:26 01/29/22 10:26 01/29/22 10:26 01/29/22 10:26 Lab Results Blood Type / Crossmatch: No Data to Display Complete Blood Count: No Data to Display Complete Metabolic Panel: No Data to Display Liver Function Panel: No Data to Display Coagulation Panel: No Data to Display Cardiac Panel: No Data to Display Arterial Blood Gas: No Data to Display Venous Blood Gas: No Data to Display Pancreas Panel: No Data to Display Thyroid Panel: No Data to Display Infectious Disease: Coronavirus (COVID-19)(PCR) Negative (Negative) 01/28/22 08:57 01/28/22 Coronavirus 2019 Source Nasal/Nares 01/28/22 08:57 01/28/22 Blood Cultures: No Data to Display Toxicology Panel: No Data to Display Anesthesia Assessment and Plan Anesthesia History Personal History: Delayed Emergence Family History: No Family History of Anesthesia Complications Exercise Tolerance Exercise Tolerance: Metabolic Equivalents>4 Pertinent Negatives Pertinent Negatives: No Symptoms of GERD, No Major Cardiovascular Symptoms or Complaints, No Major Pulmonary Symptoms or Complaints (DASH uses mouthgaurd ) and No History of CVA/TIA Cardiac & Pulmonary Exam Cardiac Exam: Normal S1/S2 Heart Sounds Pulmonary Exam: Clear Bilateral Breath Sounds Implantable Cardiac Device Does patient have a Pacemaker or an ICD?: No Airway Exam Known Difficult Airway: No Mallampati Class: 1 Mouth Opening: Normal (> 3cm) Thyromental Distance: Greater than 3 cm Neck Range of Motion: Full ROM Neck Circumference: Normal Teeth Condition: Normal Dentition ASA Classification ASA Score: ASA 2 Emergency Case?: No NPO Status NPO Status: NPO Clears >2 hours, Solids >8 hours Anesthesia Plan Resuscitation Status: Full Code Anesthesia Technique: General Anesthesia Airway Planned: Natural Airway Monitors Used: Standard Monitors
[2022-01-29 10:59] VITALS: BMI 30.6
--- NOTE | 2022-01-29 11:39 | W.ANESPOSTOP ---
Postoperative Evaluation Date, Time and Location Date Performed: 01/29/22 Time Performed: 11:39 Patient Location: Day Surgery Unit Vital Signs Most Recent Imported Vital Signs: Most Recent Vital Signs Temp Pulse Resp BP Pulse Ox 36.1 C L 92 H 18 126/89 98 01/29/22 10:26 01/29/22 10:01/29/22 10:01/29/22 10:01/29/22 10:26 Most Recent Manually Entered Vital Signs: Adult Blood Pressure: 132/88 Heart Rate: 80 Respirations: 12 Oxygen Saturation (%): 96 Temperature (C): 36.3 C Pain Score (0-10 Scale): 0 Pain Score Most Recent Pain Score: Most Recent Pain Score Pain Level 0 01/29/22 10:26 Assessment Mental Status: Awake (Alert & Oriented to Patient Baseline) Airway and Respiratory Function: Patent airway with normal (patient baseline) respiratory exam Cardiovascular Function: Hemodynamically Stable Hydration Status: Adequately Hydrated Nausea & Vomiting: No Nausea or Vomiting Pain: Pt. Denies Any Pain Peripheral Nerve Block: Patient did not receive a nerve block
[2022-01-29 11:40] VITALS: BP 132/88; PULSE 80; RESP 12; TEMPC 36.3; O2SAT 96
[2022-01-29 11:42] VITALS: BP 132/88; PULSE 83; RESP 16; TEMP 36.2; O2SAT 97
[2022-01-29] MEDS: Hyoscyamine 0.125 MG SL/ORAL/CHEW SL (11:48)
[2022-01-29 12:07] VITALS: BP 122/76; PULSE 69; RESP 16; TEMP 36.5; O2SAT 99
== END 2022-01-29 12:38 | disposition home or self-care (01) ==
LOC: SUR 10:01
PROVIDERS: PCP Nurse Practitioner Family; Visit Provider Surgery
PROC: 0DJD8ZZ Inspection of Lower Intestinal Tract, Via Natural or Artificial Opening Endoscopic (ICD-10-PCS; CPT 45378; principal; 2022-01-29 10:30)
DX: Z12.11 Encounter for screening for malignant neoplasm of colon (principal); Z80.0 Family history of malignant neoplasm of digestive organs; Z86.010 Personal history of colon polyps; G47.33 Obstructive sleep apnea (adult) (pediatric); E78.5 Hyperlipidemia, unspecified
CPT/HCPCS: 45378; J2001; J3490

== ENCOUNTER 2022-07-12 09:16 | Outpatient (CLI) | payer OTHER, SELFPAY ==
[2022-07-12 13:41] LABS: Anion Gap 10.2 mmol/L (3-11); BUN 11 mg/dL (7-18); CO2 26.8 mmol/L (21.0-32.0); CREATININE 0.8 mg/dL (0.55-1.02); Calcium 9.2 mg/dL (8.5-10.1); Calculated LDL 125 mg/dL (<100); Chloride 105 mmol/L (98-107); Cholesterol 241 mg/dL (<200); Glucose 103 mg/dL (74-106); HDL Cholesterol 45 mg/dL (40-60); Potassium 4.2 mmol/L (3.5-5.1); Sodium 142 mmol/L (136-145); TSH 4.66 uIU/mL (0.36-3.74); Triglyceride 355 mg/dL (<150)
[2022-07-12 13:57] LABS: FREE T4 1.12 ng/dL (0.76-1.46)
== END 2022-07-12 09:17 | disposition home or self-care (01) ==
LOC: LOS 09:16
PROVIDERS: PCP Nurse Practitioner Family; Visit Provider Nurse Practitioner Family
DX: E03.9 Hypothyroidism, unspecified (principal); E78.5 Hyperlipidemia, unspecified; R73.03 Prediabetes
CPT/HCPCS: 36415; 80048; 80061; 83036; 84439; 84443

== ENCOUNTER 2022-07-18 02:03 | Outpatient (CLI) | payer OTHER, SELFPAY ==
--- NOTE | 2022-07-18 07:15 | DI.NM_ITS ---
APPROVED REPORT Exam: Pharmacologic Patient Location: Out-Patient Room/Bed: Stress Nurse: Jihan Bobo RN Ordering Provider:CELINE HERRON, Contact Number: [phone] BMI: 30.64 Baseline Rhythm: Sinus Rhythm Comment: T wave inversions in aVL, V2 and V3 Indications: Jaw pain with walking, Chest pain and arm numbness Medical History Medical History: DASH, HLD, hypothyroid, migraines Cardiac Medications: Sertraline, Levothyroxine Allergies: Diphenhydramine HCL Cardiac Risk Factors: +Family history, HLD Previous Cardiac Procedures: None Pretest Chest Pain Characteristics: None Exercise History: Sedentary Physical Disabilities: None Lung Sounds: LCTA bilaterally Heart Sounds: S1/S2 Stress Test Details Test: Pharmacologic stress was paired with low level exercise. Reason for pharmacologic stress test: T wave inversions in multiple leads. Nuclear Acquisition: Rest Tc-99m/Stress Tc-99m 1 day Rest Isotope: Tc-99m Sestamibi. Dose: 9.5 Date: 07/18/2022 Injection Time: 0900 Stress Isotope: Tc-99m Sestamibi. Dose: 31 Date: 07/18/2022 Injection Time: 10:50 HR Resting HR Supine: 65 bpm Max Heart Rate (APMHR): 161.834263 bpm Resting HR Standin bpm Target HR (85% APMHR): 136.519012 bpm Max HR Achieved: 140 bpm % of APMHR: 86.96 Recovery HR: 87 bpm BP Resting BP Supine: 138/80 mmHg Resting BP Standin/82 mmHg Max BP: 158/78 mmHg Recovery BP: 140/78 mmHg ECG Resting ECG: Sinus Rhythm Ectopy: None Comment: T wave inversions in aVL and V2 Stress ECG: Sinus Tachycardia ST Change: No significant ST segment changes noted Arrhythmia: None Comment: T wave in V2 now upright Recovery ECG: Sinus Rhythm Recovery ST Change: No significant ST segment changes noted Recovery Arrhythmia: None Comment: T wave in V2 inverted Clinical Stress Symptoms: Chest pain, Jaw pain, bilateral arm numbness, shortness of breath, headache, dizzine ss Rate Pressure Product: [id number] Stress ECG Conclusion 1. Resting electrocardiogram showed nondiagnostic anterior T abnormalities 2. Patient underwent pharmacologic stress with regadenoson 3. The electrocardiographic portion of the test was nondiagnostic due to resting EKG changes 4. See MPI report Stress Test Summary STAGE HR BP SpO2 Symptoms NOTES Supine 65 138/80 Standing 74 136/82 1 min post Lexiscan injection 133 140/68 Shortness of breath, Headache, chest pressure changing to chest pain 5/10, jaw discomfort 5/10 3 min post Lexiscan injection 135 158/78 Dizziness,chest pain 5/10, jaw discomfort 3/10, bilatera l arm numbness 5/10 6 min post Lexiscan injection 96 138/70 Nausea, jaw pain 5/10 9 min post Lexiscan injection 85 140/78 muscle tightness in arms and chest, jaw discomfort 3/10 12 min post Lexiscan injection 85 arms feel heavy and numb,chest pressure 4/10, jaw discomfort 3 /10 15 min post Lexiscan injection chest pressure 1/10,Jaw discomfort 2/10, arms improving 20 min post Lexiscan injection 87 Symptoms relieved Patient completed stress test by walking at a 1.4 mph on the treadmill while lexiscan was administere d. Patient reported no symptoms prior to the test but within 30 seconds of Lexiscan administration un til about 18 minutes post Lexiscan injection patient began reporting a plethera of symptoms. Symptoms after Lexiscan injection included: chest pressure/pain, jaw discomfot, bilateral arm numbness, nause a, muscle tightness like someone is pinching my muscles really hard in arms and chest, shortness of breath, headache and dizziness. It was difficult to follow at times as patient was expressing a lo t of symptoms while simutaneously trying to describe them and rate them on the pain scale. At one poi nt patient was offered Aminophyline but refused, stating we were able to quite literally mimic how kaela valles feels with activity at home and if she just waits it will all go away and she will feel better. Wit hin 20 minutes of Lexiscan injection patient stated she felt back to herself and was escorted to the waiting room to sit with her until it was time for her second set of pictures. MPI Conclusion Myocardial perfusion is abnormal. There appears to be an area of anteroapical ischemia EF 65% Unable to accurately assess regional wall motion Radiologist Interpretation Radiologist agrees with Agricultural Equipment Sales Manager's Interpretation. Radiologist Interpretation by: Viraj Buckner MD Interpretation Date/Time: 07/18/2022 19:42:11
[2022-07-18] MEDS: Regadenoson 0.4 MG/5 ML SYR IVP (11:12)
== END 2022-07-18 02:23 ==
LOC: DI 02:04
PROVIDERS: PCP Nurse Practitioner Family; Visit Provider Nurse Practitioner Family
DX: R68.84 Jaw pain (principal); R07.89 Other chest pain; R20.2 Paresthesia of skin
CPT/HCPCS: 78452; 93017; J2785

== ENCOUNTER 2022-07-24 11:53 | Outpatient (REF) | payer OTHER, SELFPAY ==
--- NOTE | 2022-07-24 11:15 | VUL_PTH ---
PATIENT: Elham Webber LOC: N U#:[id number] AGE/SX: 57/F ROOM: RE07/24/[address]: Cee Ron DO : 1965 BED: DIS: 07/24/2022 SPEC #: [id number] RECD: 07/24/22 12:26 STATUS: GEE RE #: [id number] DEEPIKA: 07/24/22 11:[address]: Cee Ron DEPT: Surgical Specimen RECD BY: Caprice eDjesus ENTERED: 07/24/22 12:27 SP TYPE: VUL OTHR DR: HANNAH Lion Tissues: 1 - VULVA BIOPSY Procedures: GROSS AND MICRO LEVEL 4 Comments: [id number]
== END 2022-07-24 11:54 | disposition home or self-care (01) ==
LOC: LBN 11:53
PROVIDERS: PCP Nurse Practitioner Family; Visit Provider Obstetrics & Gynecology
DX: L90.0 Lichen sclerosus et atrophicus (principal)
CPT/HCPCS: 88305

== ENCOUNTER → 2022-08-05 02:33 | Outpatient (CLI) | payer OTHER, SELFPAY ==
--- NOTE | 2022-08-05 06:45 | DI.MAMMO_ITS ---
Exam(s) MAMMO SCREENING EXAM: MAMMO SCREENING CLINICAL HISTORY: screening,z12.39 TECHNIQUE: Mammograms were interpreted according to the usual protocol including computer analysis w [employer] CAD system, tomosynthesis and C-view imaging. COMPARISON: 2012 through 2020 FINDINGS: The breasts are composed of heterogeneously dense fibroglandular densities, Breast Density category C . No suspicious masses or suspicious microcalcifications are seen. No skin thickening or abnormal axillary lymph nodes are seen. There has been no significant change from prior exams. IMPRESSION: BI-RADS Category 1, Negative mammogram. Yearly screening mammography is recommended. Breast Density Category C, heterogeneously Dense. The mammogram demonstrates the patient's breast tissue is dense. Dense breast tissue is very common a nd is not abnormal but dense breast tissue can make it harder to find cancer on a mammogram. Also, de nse breast tissue may increase breast cancer risk. This information about the result of the mammogram report was provided to the patient to raise their awareness. Use this report when you speak with the patient about their risks for breast cancer, which includes their family history. At that time, you may recommend additional screening tests (Ultrasound or MRI) as they might be useful based on their r isk. A negative radiographic report should not delay biopsy if a dominant or clinically suspicious mass is present. Up to ten percent of cancers are not identified on mammography. A negative report may reinforce clinical impression. Adenosis and dense breasts may obscure an underlying neoplasm. False positive reports average 6 to 10%.
== END ==
PROVIDERS: PCP Nurse Practitioner Family; Visit Provider Nurse Practitioner Family
DX: Z12.31 Encounter for screening mammogram for malignant neoplasm of breast (principal); R92.8 Other abnormal and inconclusive findings on diagnostic imaging of breast
CPT/HCPCS: 77063; 77067

== ENCOUNTER 2022-09-16 08:22 | Outpatient (RCR) | payer OTHER, SELFPAY ==
[2022-09-16 10:32] LABS: ALT 37 U/L (14-59); AST 25 U/L (15-37); Albumin 3.8 g/dL (3.4-5.0); Alkaline Phosphatase 139 U/L (46-116); Anion Gap 7.8 mmol/L (3-11); BUN 15 mg/dL (7-18); Bilirubin, Total 0.4 mg/dL (0.2-1.0); CO2 27.2 mmol/L (21.0-32.0); Calcium 9.6 mg/dL (8.5-10.1); Chloride 106 mmol/L (98-107); FREE T4 0.97 ng/dL (0.76-1.46); Glucose 108 mg/dL (74-106); Potassium 4.2 mmol/L (3.5-5.1); Sodium 141 mmol/L (136-145); TSH 10.13 uIU/mL (0.36-3.74); Total Protein 7.8 g/dL (6.4-8.2)
[2022-09-16 10:57] LABS: Calculated LDL 57 mg/dL (<100); Cholesterol 147 mg/dL (<200); HDL Cholesterol 62 mg/dL (40-60); Triglyceride 140 mg/dL (<150)
== END 2022-09-16 23:59 | disposition home or self-care (01) ==
LOC: CR 08:22
PROVIDERS: PCP Nurse Practitioner Family; Visit Provider Internal Medicine Cardiovascular Disease
DX: Z51.89 Encounter for other specified aftercare (principal); Z95.5 Presence of coronary angioplasty implant and graft
CPT/HCPCS: 36415; 80053; 80061; 84439; 84443; S9472

== ENCOUNTER 2022-10-16 08:00 | Outpatient (RCR) | payer OTHER, SELFPAY | END 2022-10-16 23:59 | disposition home or self-care (01) | LOC: CR 08:00 | PROVIDERS: PCP Nurse Practitioner Family; Visit Provider Internal Medicine Cardiovascular Disease | DX: Z95.5 Presence of coronary angioplasty implant and graft (principal); Z51.89 Encounter for other specified aftercare | CPT/HCPCS: S9472 ==

== ENCOUNTER 2022-11-13 08:00 | Outpatient (RCR) | payer OTHER, SELFPAY | END 2022-11-16 23:59 | disposition home or self-care (01) | LOC: CR 08:00 | PROVIDERS: PCP Nurse Practitioner Family; Visit Provider Internal Medicine Cardiovascular Disease | DX: Z95.5 Presence of coronary angioplasty implant and graft (principal); Z51.89 Encounter for other specified aftercare | CPT/HCPCS: S9472 ==

== ENCOUNTER 2022-11-13 08:24 | Emergency (ER) | payer OTHER, SELFPAY ==
--- NOTE | 2022-11-13 08:15 | RT.EKG_ITS ---
APPROVED REPORT Exam: Resting ECG Reason for Exam: chest pain Patient Location: E HR:86 bpm ECG Measurements Heart Rate 86 AXIS MI 152 P 41 QRSd 92 QRS -25 QT 367 T 75 QTc 440 Conclusion Sinus rhythm...normal P axis, V-rate 60- [address] changes
[2022-11-13 08:27] VITALS: BP 117/74; PULSE 88; RESP 12; TEMP 36.7; O2SAT 95
[2022-11-13 08:31] VITALS: RESP 12
[2022-11-13 08:59] LABS: Abs Immature Grans 0.01 10^3/uL (0.0-0.06); Absolute Basophil Count 0.05 10^3/uL (0.0-0.2); Absolute Eosinophil Count 0.07 10^3/uL (0.0-0.7); Absolute Lymphocyte Count 1.44 10^3/uL (1.2-3.4); Absolute Monocyte Count 0.39 10^3/uL (0.1-0.8); Absolute Neutrophil Count 4.08 10^3/uL (1.2-6.7); Basophils % 0.8; Eosinophils % 1.2; HCT 41.1 % (36.0-46.0); HGB 13.7 g/dL (11.2-15.7); Immature Grans % 0.2; Lymphocytes % 23.8; MCH 30.9 pg (27.0-33.0); MCHC 33.3 % (32.0-36.0); MCV 93 fL (80-95); MPV 8.6 fL (8.0-11.0); Monocytes % 6.5; Neutrophils % 67.5; Platelet Count 295 10^3/uL (130-400); RBC 4.44 10^6/uL (3.93-5.22); RDW 12.8 % (11.7-14.6); RDW-SD 43.7 fL; WBC 6.04 10^3/uL (4.4-10.8)
--- NOTE | 2022-11-13 09:15 | DI.RAD_ITS ---
Exam(s) XR PORTABLE CHEST AP EXAM: XR PORTABLE CHEST AP CLINICAL HISTORY: chest pain TECHNIQUE: 2D digital imaging was performed of the chest. One image was obtained. An AP view was ob tained. COMPARISON: No priors for comparison. FINDINGS: MEDIASTINUM: Normal. HEART: Normal. PULMONARY VASCULATURE: Normal. LUNGS: Clear. PLEURAL SPACE: No pleural effusion or pneumothorax. BONE:Within normal limits for the patient's age. OTHER FINDINGS:Normal. IMPRESSION: No acute pulmonary findings. DATA REPOSITORY: RADIATION DOSE DELIVERED:
[2022-11-13 09:28] LABS: ALT 35 U/L (14-59); AST 24 U/L (15-37); Albumin 3.8 g/dL (3.4-5.0); Alkaline Phosphatase 142 U/L (46-116); Anion Gap 7.8 mmol/L (3-11); BUN 10 mg/dL (7-18); Bilirubin, Total 0.4 mg/dL (0.2-1.0); CO2 26.2 mmol/L (21.0-32.0); CREATININE 0.8 mg/dL (0.55-1.02); Calcium 9.1 mg/dL (8.5-10.1); Chloride 107 mmol/L (98-107); Creatine Kinase 100 U/L (26-192); Estimated GFR 84.82 (mL/min/1.73m2); Glucose 109 mg/dL (74-106); Sodium 141 mmol/L (136-145); TSH (W/Ref FT4) 2.98 uIU/mL (0.36-3.74); Total Protein 7.5 g/dL (6.4-8.2); Troponin I < 50 ng/L (<or=60)
[2022-11-13 09:38] LABS: D-Dimer 448 ng/mlFEU (<500)
--- NOTE | 2022-11-13 10:00 | ED.GENADUL_ITS ---
Discharge Plan Disposition Patient Disposition: Home Condition: Stable Discharge Details Clinical Impression: Chest pain Primary Care Provider: Carol Kruger ED Provider: Caprice Benitez Home Meds and New Rx's Prescriptions: Continued Centrum Silver 1 EACH tablet 1 ea PO DAILY sertraline 50 mg tablet 50 mg PO DAILY Qty: 90 4RF Rx Instructions: Take 1 tab daily metoprolol succinate 25 mg tablet extended release 24 hr 25 mg PO DAILY levothyroxine 100 mcg tablet 88 mcg PO DAILY clobetasol [Temovate] 0.05 % ointment 1 applic topical BID PRN atorvastatin 40 mg Tablet 40 mg PO QHS clopidogrel 75 mg Tablet 75 mg PO DAILY nitroglycerin [Nitrostat] 0.4 mg Tablet, Sublingual 0.4 mg sublingual PRN PRN aspirin 81 mg Tablet 81 mg PO DAILY Discharge Instructions Instructions: Chest Pain (ED) Additional Instructions: Please call your aircraft mechanic structures when you get home to schedule an appointment and ask regarding cardiac rehab Take nitroglycerin as needed Should you develop worsening pain, fever, chills, or with any new or progressing symptoms, please return for reassessment Referrals: Carol Kruger, HYDRO TECHNICIAN [Primary Care Provider] - 1 day Medical Decision Making This 57-year-old female presents with chest pain and arm pain which started while she was walking on the treadmill at cardiac rehab, she took a nitroglycerin which alleviated her symptoms She has a notable cardiac history of recent stent placement, allergy on 08/09/2022 Troponin and EKG initially are negative and diagnostic labs are reassuring Case was discussed with pain, nurse practitioner from cardiology and recommendation is to observe patient with 2 troponins and she will place follow- up [facility] for repeat assessment She will continue on her metoprolol and medical management Her cardiac catheterization was reviewed and it looks like she has a remaining obtuse marginal occlusion approximately 70% which will be treated medically per her aircraft mechanic structures She has been pain-free throughout this for our encounter and feels comfortable discharge home at this time Return precautions reviewed and patient expressed understanding Chest x-ray without acute abnormality per radiologist interpretation and my review HPI General Date/Time Provider Initiated Documentation: 11/13/22 08:24 . HPI Narrative: This 57-year-old female presents with report of chest pain which started while she was on the treadmill at cardiac rehab. She had a stent placed to her LAD on at [facility] and has been followed there. She states that she took a nitroglycerin at time of onset of pain and her symptoms resolved completely. She also took her Plavix and her aspirin today. She has a history of hypertension and hyperlipidemia. She denies any fever or chills. She has not been ill. She denies any nausea associated with the episode. She states that it started as pressure in her chest and radiated to her arms. She denies any radiation to back. It did radiate to her neck. She denies any new calf pain or swelling. She denies any shortness of breath or pleuritic chest pain. She has been taking all of her medications as prescribed. She last saw her aircraft mechanic structures on September 20. She had metoprolol and nitroglycerin added at this appointment reportedly. She denies any additional new medications. She states that she has intermittently had some discomfort with exertion but this pain was slightly increased from her prior episodes. Related Data Home Medications Medication Instructions Recorded Confirmed cmobvlek-wld-rdxag acid 0.4 1 ea PO DAILY 08/14/17 11/13/22 mg-lycopene 300 mcg-lutein 250 mcg tablet (Centrum Silver) sertraline 50 mg tablet 50 mg PO DAILY #90 tabs 04/01/22 11/13/22 aspirin 81 mg tablet 81 mg PO DAILY 08/14/22 11/13/22 atorvastatin 40 mg tablet 40 mg PO QHS 08/14/22 11/13/22 clopidogrel 75 mg tablet 75 mg PO DAILY 08/14/22 11/13/22 nitroglycerin 0.4 mg sublingual 0.4 mg sublingual PRN PRN 08/14/22 11/13/22 tablet (Nitrostat) metoprolol succinate 25 mg 25 mg PO DAILY 09/26/22 11/13/22 tablet,extended release 24 hr clobetasol 0.05 % topical ointment 1 applic topical BID PRN 11/13/22 11/13/22 (Temovate) levothyroxine 100 mcg tablet 88 mcg PO DAILY 11/13/22 11/13/22 Previous Rx's Medication Instructions Recorded sertraline 50 mg tablet 50 mg PO DAILY #90 tabs 04/01/22 Allergies Allergy/AdvReac Type Severity Reaction Status Date / Time diphenhydramine HCl AdvReac Mild can't Verified 11/13/22 08:33 [From Benadryl] function General Stated Complaint: Chest Pain BRIONNA: 3 Review of Systems All systems reviewed & are unremarkable except as noted in HPI and below PFSH All Active Problems (Updated 11/13/22 @ 12:45 by HAYLEY Sadler) Chest pain (Acute) Coronary artery disease (Chronic) S/p ANGELES to LAD 08/08 Depressive disorder (Chronic) Hyperlipidemia (Chronic) Hypothyroidism (Chronic) Obstructive sleep apnea (Chronic) PSG 08/2016 Tubular adenoma of colon (Chronic) Prediabetes (Chronic) Irritable bowel syndrome (Chronic) Allergic rhinitis (Chronic) Essential tremor (Chronic) Right carpal tunnel syndrome (Chronic) Mild on EMG testing 03/05 Migraine headache without aura (Chronic) Anogenital lichen sclerosus (Acute) Elevated alkaline phosphatase level (Acute) Lichen sclerosus et atrophicus of the vulva (Acute) Bx Proven, 07/2022 Surgical History History of esophagogastroduodenoscopy (07/31/16) S/P colonoscopy (01/29/22) S/P coronary artery stent placement (08/08/22) ANGELES to LAD S/P left knee arthroscopy (05/15/16) With microfracture of chondral lesion of medial femoral condyle and partial medial meniscectomy Status post cholecystectomy Status post laparoscopic supracervical hysterectomy (~2008) For AUB Family History Mother Essential hypertension Alzheimer disease IBS (irritable bowel syndrome) Father , at 54 of colon cancer Colon cancer Sister No problems noted. Brother Essential hypertension Son Depression Son No problems noted. 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 Pets and animals: Yes Pets and animals: cat(s), dog(s) and farm animals Current gender identity: female What is your relationship status?: How often do you talk on the phone with friends or family?: decline to answer How often do you get together with friends or relatives?: decline to answer How often do you attend latter day or sikhism services?: decline to answer Do you belong to any clubs or organized social groups?: decline to answer Panel score (0-1 are the most socially isolated patients): 1 What type of physical activity do you participate in: decline to answer Duration: 45-60 minutes/day Frequency: 3-4 times per week Cherelle/Orthodoxy: Tenriism Special cherelle needs: No Seatbelt use: always Helmet use: Yes Helmet use: always Do you feel safe at home: Yes Do you feel safe in your relationship?: Yes History History 3 Para 2 Hx # Term Pregnancies Multiple births Hx # Pregnancies Ectopic pregnancies AB induced Hx Number of Living Children 2 AB spontaneous 1 Exam Const General: cooperative, comfortable and no acute distress HENMT Head: normal to inspection Mouth: oral mucosae normal Eyes Sclera: sclerae normal Chest Chest: normal inspection of the chest Resp Effort & Inspection: normal respiratory effort Auscultation: clear to auscultation bilaterally Cardio Rate: regular rate Rhythm: regular rhythm Heart Sounds: no murmurs GI Inspection: normal to inspection Auscultation: normal bowel sounds Skin General skin exam: no rashes or lesions noted Neuro General: patient alert and patient oriented x3 Extrem General: normal to inspection Course Vital Signs Vital signs: Vital Signs Temperature 36.7 C 11/13/22 08:27 Pulse 88 11/13/22 08:27 Respiratory Rate 12 11/13/22 08:27 Blood Pressure 117/74 11/13/22 08:27 Pulse Oximetry 95 11/13/22 08:27 Temperature 36.7 C 11/13/22 08:27 Temperature Source Temporal Artery Scan 11/13/22 08:27 Pulse 88 11/13/22 08:27 Respiratory Rate 12 11/13/22 08:31 Respiratory Effort Non-Labored 11/13/22 08:31 Respiratory Depth Normal 11/13/22 08:31 Respiratory Pattern Normal 11/13/22 08:31 Blood Pressure 117/74 11/13/22 08:27 Blood Pressure Position Supine 11/13/22 08:27 Pulse Oximetry 95 11/13/22 08:27 Oxygen Delivery Method Room Air 11/13/22 08:27 Oxygen Flow Rate 0 11/13/22 08:27 Pain Level 1 11/13/22 08:31 Lab/Test Results Lab/Test Results: Laboratory Tests Range/Units 11/13/22 11/13/22 11/13/22 08:43 08:43 08:43 WBC (4.4-10.8) 10^3/uL 6.04 RBC (3.93-5.22) 10^6/uL 4.44 Hgb (11.2-15.7) g/dL 13.7 Hct (36.0-46.0) % 41.1 MCV (80-95) fL 93 MCH (27.0-33.0) pg 30.9 MCHC (32.0-36.0) % 33.3 RDW (11.7-14.6) % 12.8 Plt Count (130-400) 10^3/uL 295 MPV (8.0-11.0) fL 8.6 Immature Gran % 0.2 Neutrophils % 67.5 Lymphocytes % 23.8 Monocytes % 6.5 Eosinophils % 1.2 Basophils % 0.8 Nucleated RBC % (0.0-0.3) % 0.0 Absolute Neutrophils (1.2-6.7) 10^3/uL 4.08 Absolute Lymphocytes (1.2-3.4) 10^3/uL 1.44 Absolute Monocytes (0.1-0.8) 10^3/uL 0.39 Absolute Eosinophils (0.0-0.7) 10^3/uL 0.07 Absolute Basophils (0.0-0.2) 10^3/uL 0.05 D-Dimer (<500) ng/mlFEU Sodium (136-145) mmol/L 141 Potassium (3.5-5.1) mmol/L 4.0 Chloride (98-107) mmol/L 107 Carbon Dioxide (21.0-32.0) mmol/L 26.2 Anion Gap (3-11) mmol/L 7.8 BUN (7-18) mg/dL 10 Creatinine (0.55-1.02) mg/dL 0.8 Est GFR (CKD-EPI 2020) (mL/min/1.73m2) 84.82 Glucose (74-106) mg/dL 109 H Calcium (8.5-10.1) mg/dL 9.1 Magnesium (1.8-2.4) mg/dL 2.0 Total Bilirubin (0.2-1.0) mg/dL 0.4 AST (15-37) U/L 24 ALT (14-59) U/L 35 Alkaline Phosphatase (46-116) U/L 142 H Creatine Kinase (26-192) U/L 100 Cancelled Troponin I (<or=60) ng/L < 50 Total Protein (6.4-8.2) g/dL 7.5 Albumin (3.4-5.0) g/dL 3.8 TSH (0.36-3.74) uIU/mL 2.98 Range/Units 11/13/22 11/13/22 08:43 08:43 WBC (4.4-10.8) 10^3/uL RBC (3.93-5.22) 10^6/uL Hgb (11.2-15.7) g/dL Hct (36.0-46.0) % MCV (80-95) fL MCH (27.0-33.0) pg MCHC (32.0-36.0) % RDW (11.7-14.6) % Plt Count (130-400) 10^3/uL MPV (8.0-11.0) fL Immature Gran % Neutrophils % Lymphocytes % Monocytes % Eosinophils % Basophils % Nucleated RBC % (0.0-0.3) % Absolute Neutrophils (1.2-6.7) 10^3/uL Absolute Lymphocytes (1.2-3.4) 10^3/uL Absolute Monocytes (0.1-0.8) 10^3/uL Absolute Eosinophils (0.0-0.7) 10^3/uL Absolute Basophils (0.0-0.2) 10^3/uL D-Dimer (<500) ng/mlFEU 448 Sodium (136-145) mmol/L Potassium (3.5-5.1) mmol/L Chloride (98-107) mmol/L Carbon Dioxide (21.0-32.0) mmol/L Anion Gap (3-11) mmol/L BUN (7-18) mg/dL Creatinine (0.55-1.02) mg/dL Est GFR (CKD-EPI 2020) (mL/min/1.73m2) Glucose (74-106) mg/dL Calcium (8.5-10.1) mg/dL Magnesium (1.8-2.4) mg/dL Total Bilirubin (0.2-1.0) mg/dL AST (15-37) U/L ALT (14-59) U/L Alkaline Phosphatase (46-116) U/L Creatine Kinase (26-192) U/L Troponin I (<or=60) ng/L Total Protein (6.4-8.2) g/dL Albumin (3.4-5.0) g/dL TSH (0.36-3.74) uIU/mL Cancelled
--- NOTE | 2022-11-13 11:15 | RT.EKG_ITS ---
APPROVED REPORT Exam: Resting ECG Reason for Exam: chest pain Patient Location: E HR:63 bpm ECG Measurements Heart Rate 63 AXIS MA 160 P 14 QRSd 96 QRS -10 QT 402 T 60 QTc 413 Conclusion Sinus rhythm...normal P axis, V-rate 60- 99 Low voltage, precordial leads.. Nonspecific T abnormalities, anterior leads.
[2022-11-13 12:10] LABS: Troponin I < 50 ng/L (<or=60)
[2022-11-13 12:55] VITALS: BP 118/69; PULSE 68; TEMP 37; O2SAT 98
[2022-11-14 11:36] LABS: Lab Add On Test DONE
[2022-11-14 11:59] LABS: FREE T4 1.14 ng/dL (0.76-1.46); GGT 23 U/L (5-55); TSH 2.67 uIU/mL (0.36-3.74)
== END 2022-11-13 13:20 | disposition home or self-care (01) ==
PROVIDERS: Emergency Provider Physician Assistant; PCP Nurse Practitioner Family
DX: R07.9 Chest pain, unspecified; I10 Essential (primary) hypertension; E78.5 Hyperlipidemia, unspecified; Z79.82 Long term (current) use of aspirin; M79.603 Pain in arm, unspecified
CPT/HCPCS: 36415; 80053; 82550; 93005; 99284; 71045; 82977; 83735; 84439; 84443; 84484; 85025; 85379; 93010; 99285

== ENCOUNTER 2022-11-25 02:37 | Outpatient (CLI) | payer OTHER, SELFPAY ==
--- NOTE | 2022-11-25 17:50 | DI.DEXA_ITS ---
Exam(s) XR DEXA BONE DENSITY W/WO ANDER EXAM: XR DEXA BONE DENSITY W/WO NADER CLINICAL HISTORY: assess for osteoporosis, snf synthroid use,Z78.0 TECHNIQUE: COMPARISON: No exams were available for comparison FINDINGS: Lateral Spine Image: Unremarkable. No compression deformities identified. Left hip: Total T-Score: -1.0 Total Z-Score: -0.1 T- and Z-scores: Within normal limits. Lumbar Spine: Total T-Score: -0.6 Total Z-Score: 0.8 T- and Z-scores: Within normal limits. IMPRESSION: No evidence of osteoporosis.
== END 2022-11-25 02:57 ==
PROVIDERS: PCP Nurse Practitioner Family; Visit Provider Nurse Practitioner Family
DX: R74.8 Abnormal levels of other serum enzymes (principal); Z78.0 Asymptomatic menopausal state; Z13.820 Encounter for screening for osteoporosis
CPT/HCPCS: 77080

== ENCOUNTER 2022-12-13 08:00 | Outpatient (RCR) | payer OTHER, SELFPAY | END 2022-12-17 23:59 | disposition home or self-care (01) | LOC: CR 08:00 | PROVIDERS: PCP Nurse Practitioner Family; Visit Provider Internal Medicine Cardiovascular Disease | DX: Z95.5 Presence of coronary angioplasty implant and graft (principal); Z51.89 Encounter for other specified aftercare | CPT/HCPCS: S9472 ==

== ENCOUNTER 2022-12-27 08:00 | Outpatient (RCR) | payer OTHER, SELFPAY | END 2023-01-14 23:59 | disposition home or self-care (01) | LOC: CR 08:00 | PROVIDERS: PCP Nurse Practitioner Family; Visit Provider Internal Medicine Cardiovascular Disease | DX: Z95.5 Presence of coronary angioplasty implant and graft (principal); Z51.89 Encounter for other specified aftercare | CPT/HCPCS: S9472 ==

== ENCOUNTER 2023-04-11 14:25 | Outpatient (CLI) | payer OTHER, SELFPAY ==
--- NOTE | 2023-04-11 14:15 | RT.EKG_ITS ---
APPROVED REPORT Exam: Resting ECG Reason for Exam: c/o jaw pain/chest pain Patient Location: O HR:59 bpm ECG Measurements Heart Rate 59 AXIS OK 160 P 44 QRSd 110 QRS -5 QT 423 T 37 QTc 419 Conclusion Sinus rhythm...normal P axis, V-rate 50- 99 Borderline T abnormalities, anterior leads...T flat or neg, V2-V4
== END 2023-04-11 14:26 | disposition home or self-care (01) ==
LOC: DI.CM 14:26
PROVIDERS: PCP Nurse Practitioner Family; Visit Provider Nurse Practitioner Family
DX: R07.89 Other chest pain (principal); R42 Dizziness and giddiness
CPT/HCPCS: 93010

== ENCOUNTER 2023-06-13 00:45 | Outpatient (CLI) | payer OTHER, SELFPAY ==
--- NOTE | 2023-06-13 06:45 | DI.MRI_ITS ---
Exam(s) MR UPPER JOINT RT WO EXAM: MR UPPER JOINT RT WO CLINICAL HISTORY: right wrist pain, popping sound,m25.531. TECHNIQUE: Multiplanar multisequence MRI was performed. COMPARISON: Comparison x-ray is 03/31/2019. FINDINGS: BONES: There is no fracture or contusion pattern. There is a tiny subchondral cyst in the lunate. JOINTS: The radiocarpal joint is unremarkable. There are mild degenerative changes seen at the 1st C MC joint with small osteophytes present. TENDONS: Flexors: Unremarkable. Extensors: Unremarkable. MUSCLES: Unremarkable. MEDIAN NERVE: Unremarkable on this noncontrast examination. ULNAR NERVE: Unremarkable on this noncontrast examination. SOFT TISSUES: There is a 0.6 cm AP x 0.3 cm transverse by 0.6 cm craniocaudad cyst associated with th e pisotriquetral joint likely reflecting a ganglion cyst. There is also a 1.1 cm transverse by 0.8 c m AP x 2.1 cm craniocaudad craniocaudad cystic collection at the lateral aspect of the radiocarpal aris int likely reflecting a ganglion cyst. LIGAMENTS: Unremarkable. TRIANGULAR FIBROCARTILAGE: There is mild hyperintense signal seen at the ulnar attachment site of the TFCC suspicious for tear. There is mild edema in the adjacent soft tissues. OTHER: IMPRESSION: 1. Hyperintense signal seen at the ulnar attachment site of the TFCC with adjacent edema suspicious f or a TFCC tear. 2. Two ganglion cysts. One associated with the pisotriquetral joint, the other associated with the l ateral radiocarpal joint. 3. Mild degenerative changes seen at the 1st CMC joint. DATA REPOSITORY:
== END 2023-06-13 01:05 ==
LOC: DI 00:46
PROVIDERS: PCP Nurse Practitioner Family; Visit Provider Nurse Practitioner Family
DX: M18.11 Unilateral primary osteoarthritis of first carpometacarpal joint, right hand (principal); M67.431 Ganglion, right wrist
CPT/HCPCS: 73221

== ENCOUNTER 2023-06-25 13:43 | Inpatient (IN) | payer OTHER, SELFPAY ==
[2023-06-25] VITALS (83 sets, daily range): BP systolic 103–142; BP diastolic 54–98; PULSE 53–76; RESP 9–28; TEMP 36.6–36.7; O2SAT 93–100
--- NOTE | 2023-06-25 13:45 | RT.EKG_ITS ---
APPROVED REPORT Exam: Resting ECG Reason for Exam: chest pain Patient Location: E HR:63 bpm ECG Measurements Heart Rate 63 AXIS TN 159 P -10 QRSd 98 QRS 2 QT 444 T 37 QTc 453 Conclusion Sinus rhythm...normal P axis, V-rate 60- 99 No change vs 04/08
[2023-06-25 14:13] LABS: Abs Immature Grans 0.01 10^3/uL (0.0-0.06); Absolute Basophil Count 0.04 10^3/uL (0.0-0.2); Absolute Lymphocyte Count 1.79 10^3/uL (1.2-3.4); Absolute Monocyte Count 0.36 10^3/uL (0.1-0.8); Absolute Neutrophil Count 3.03 10^3/uL (1.2-6.7); Basophils % 0.8; Eosinophils % 1.9; HGB 13.2 g/dL (11.2-15.7); Immature Grans % 0.2; Lymphocytes % 33.6; MCH 29.9 pg (27.0-33.0); MCV 91 fL (80-95); MPV 8.5 fL (8.0-11.0); Monocytes % 6.8; Neutrophils % 56.7; Platelet Count 274 10^3/uL (130-400); RBC 4.42 10^6/uL (3.93-5.22); RDW 12.7 % (11.7-14.6); RDW-SD 42.1 fL; WBC 5.33 10^3/uL (4.4-10.8)
--- NOTE | 2023-06-25 14:15 | DI.RAD_ITS ---
Exam(s) XR PORTABLE CHEST AP EXAM: XR PORTABLE CHEST AP CLINICAL HISTORY: Chest Pain TECHNIQUE: 2D digital imaging was performed. COMPARISON: No exams were available for comparison FINDINGS: LUNGS: Clear. No pleural abnormality seen. HEART: Normal size. AORTA: Normal diameter. BONES: Unremarkable for age. Soft tissues: Unremarkable. IMPRESSION: No acute findings. DATA REPOSITORY: RADIATION DOSE DELIVERED:
[2023-06-25 14:22] LABS: INR 1.1 (0.9-1.1); PTT Activated 26.5 sec (21.5-31.9); Prothrombin Time 10.9 sec (9.3-11.0)
[2023-06-25 14:29] LABS: ALT 26 U/L (14-59); AST 19 U/L (15-37); Albumin 3.9 g/dL (3.4-5.0); Alkaline Phosphatase 157 U/L (46-116); Anion Gap 10.6 mmol/L (3-11); BUN 10 mg/dL (7-18); Bilirubin, Total 0.6 mg/dL (0.2-1.0); CO2 27.4 mmol/L (21.0-32.0); CREATININE 0.8 mg/dL (0.55-1.02); Calcium 9.2 mg/dL (8.5-10.1); Chloride 106 mmol/L (98-107); Estimated GFR 84.82 (mL/min/1.73m2); Glucose 100 mg/dL (74-106); Magnesium 2.2 mg/dL (1.8-2.4); NT-proBNP 92 pg/mL (<300); Potassium 4.1 mmol/L (3.5-5.1); Sodium 144 mmol/L (136-145); Total Protein 7.7 g/dL (6.4-8.2)
[2023-06-25 14:30] LABS: Troponin I < 50 ng/L (<or=60)
--- NOTE | 2023-06-25 14:47 | ED.GENADUL_ITS ---
Discharge Plan Discharge Details Chief Complaint: Chest Pain Primary Care Provider: Carol Kruger ED Provider: Reta Abdalla Home Meds and New Rx's Prescriptions: No Action isosorbide mononitrate 30 mg tablet extended release 24 hr 30 mg PO DAILY Centrum Silver 1 EACH tablet 1 ea PO DAILY metoprolol succinate 25 mg tablet extended release 24 hr 25 mg PO DAILY levothyroxine 88 mcg tablet 88 mcg PO DAILY Qty: 90 3RF amlodipine 2.5 mg tablet 2.5 mg PO DAILY sertraline 50 mg tablet 50 mg PO DAILY Qty: 90 3RF Rx Instructions: Take 1 tab daily lorazepam 1 mg tablet 1 mg PO ONCE Qty: 1 0RF Rx Instructions: Take 15-30min before MRI meclizine 25 mg tablet 25 mg PO TID PRN (Reason: dizziness) Qty: 60 1RF clobetasol [Temovate] 0.05 % ointment 1 applic topical BID PRN atorvastatin 40 mg Tablet 40 mg PO QHS clopidogrel 75 mg Tablet 75 mg PO DAILY nitroglycerin [Nitrostat] 0.4 mg Tablet, Sublingual 0.4 mg sublingual PRN PRN aspirin 81 mg Tablet 81 mg PO DAILY Medical Decision Making 57-year-old female with a past medical history of obstructive sleep apnea, hyperlipidemia, prediabetes, stent placed in July 2022, at [facility] presents with left-sided chest pain which she describes as a blip in her chest with some left jaw numbness which began around noon while at work prior to arrival. Patient did take 1 sublingual nitroglycerin at approximately 1220 which resolved her chest pain. She is still complaining of left jaw numbness. She also end orses that yesterday her left arm was bothering her. She denies any nausea vomiting, denies any diaphoresis or radiation of pain into her back. She does endorse a dry cough nonproductive cough. Denies any fever chills or any other associated symptoms. She does report diarrhea which has been ongoing for her. She does take aspirin daily, Plavix Imdur which she did take her normal medications today. EKG was reviewed by Dr. Davila ER attending, normal sinus rhythm, no significant change from previous EKG. No STEMI. Cardiac workup ordered including serial troponins, proBNP due to report of swelling and significant cardiac history, PT PTT, chest x-ray. CBC is within normal limits, PT PTT also within normal limits CMP also largely unremarkable alk phos is 157, initial troponin less than 50, proBNP 92 which is within normal limits. Repeat troponin scheduled for approximately 1700 this evening. Did inform patient to notify us if any worsening chest pain or feeling worse at any time, will plan for serial troponin. Initial heart score is a 5 however with radiating pain, jaw numbness and presentation, I do feel that this may be a little bit higher. According to Wells score for PE patient is at low risk for PE. Patient is not tachycardic. No recent long trips, is not on any hormone replacement is a non- smoker. Care is to be handed off to oncoming provider Dr. Hue Martinez pending serial troponin, consult with cardiology @ [facility] and/or admission for chest pain rule out. Medical Records Medical records reviewed: Yes I reviewed the patient's medical records. Imaging Data Radiologic Study: Imaging: X-Ray Radiologist's impression: CLINICAL HISTORY: Chest Pain TECHNIQUE: 2D digital imaging was performed. COMPARISON: No exams were available for comparison FINDINGS: LUNGS: Clear. No pleural abnormality seen. HEART: Normal size. AORTA: Normal diameter. BONES: Unremarkable for age. Soft tissues: Unremarkable. IMPRESSION: No acute findings. Lab Data Lab results reviewed: Yes I reviewed the patient's lab results. Labs: Laboratory Tests Range/Units 06/25/23 06/25/23 06/25/23 14:01 14:01 14:01 WBC (4.4-10.8) 10^3/uL 5.33 RBC (3.93-5.22) 10^6/uL 4.42 Hgb (11.2-15.7) g/dL 13.2 Hct (36.0-46.0) % 40.0 MCV (80-95) fL 91 MCH (27.0-33.0) pg 29.9 MCHC (32.0-36.0) % 33.0 RDW (11.7-14.6) % 12.7 Plt Count (130-400) 10^3/uL 274 MPV (8.0-11.0) fL 8.5 Immature Gran % 0.2 Neutrophils % 56.7 Lymphocytes % 33.6 Monocytes % 6.8 Eosinophils % 1.9 Basophils % 0.8 Nucleated RBC % (0.0-0.3) % 0.0 Absolute Neutrophils (1.2-6.7) 10^3/uL 3.03 Absolute Lymphocytes (1.2-3.4) 10^3/uL 1.79 Absolute Monocytes (0.1-0.8) 10^3/uL 0.36 Absolute Eosinophils (0.0-0.7) 10^3/uL 0.10 Absolute Basophils (0.0-0.2) 10^3/uL 0.04 PT (9.3-11.0) sec 10.9 INR (0.9-1.1) 1.1 APTT (21.5-31.9) sec 26.5 Sodium (136-145) mmol/L 144 Potassium (3.5-5.1) mmol/L 4.1 Chloride (98-107) mmol/L 106 Carbon Dioxide (21.0-32.0) mmol/L 27.4 Anion Gap (3-11) mmol/L 10.6 BUN (7-18) mg/dL 10 Creatinine (0.55-1.02) mg/dL 0.8 Est GFR (CKD-EPI 2020) (mL/min/1.73m2) 84.82 Glucose (74-106) mg/dL 100 Calcium (8.5-10.1) mg/dL 9.2 Magnesium (1.8-2.4) mg/dL 2.2 Total Bilirubin (0.2-1.0) mg/dL 0.6 AST (15-37) U/L 19 ALT (14-59) U/L 26 Alkaline Phosphatase (46-116) U/L 157 H Troponin I (<or=60) ng/L < 50 NT-Pro-B Natriuret Pep (<300) pg/mL 92 Total Protein (6.4-8.2) g/dL 7.7 Albumin (3.4-5.0) g/dL 3.9 HPI General Mode of arrival: ambulatory . Date/Time Provider Initiated Documentation: 06/25/23 13:58 . Limitations to Documentation: no limitations . Information obtained by: patient, RN notes reviewed and old records reviewed . HPI Narrative: 57-year-old female with a past medical history of obstructive sleep apnea, hyperlipidemia, prediabetes, stent placed in July 2022, at [facility] presents with left-sided chest pain which she describes as a blip in her chest with some left jaw numbness which began around noon while at work prior to arrival. Patient did take 1 sublingual nitroglycerin at approximately 1220 which resolved her chest pain. She is still complaining of left jaw numbness. She also endorses that yesterday her left arm was bothering her. She denies any nausea vomiting, denies any diaphoresis or radiation of pain into her back. She does endorse a dry cough nonproductive cough. Denies any fever chills or any other associated symptoms. She does report diarrhea which has been ongoing for her. She does take aspirin daily, Plavix Imdur which she did take her normal medications today. Related Data Home Medications Medication Instructions Recorded Confirmed [id number] acid 0.4 1 ea PO DAILY 08/14/17 05/26/23 mg-lycopene 300 mcg-lutein 250 mcg tablet (Centrum Silver) aspirin 81 mg tablet 81 mg PO DAILY 08/14/22 05/26/23 atorvastatin 40 mg tablet 40 mg PO QHS 08/14/22 05/26/23 clopidogrel 75 mg tablet 75 mg PO DAILY 08/14/22 05/26/23 nitroglycerin 0.4 mg sublingual 0.4 mg sublingual PRN PRN 08/14/22 05/26/23 tablet (Nitrostat) metoprolol succinate 25 mg 25 mg PO DAILY 09/26/22 05/26/23 tablet,extended release 24 hr clobetasol 0.05 % topical ointment 1 applic topical BID PRN 11/13/22 05/26/23 (Temovate) levothyroxine 88 mcg tablet 88 mcg PO DAILY #90 tab-caps 11/14/22 05/26/23 amlodipine 2.5 mg tablet 2.5 mg PO DAILY Angina 11/28/22 05/26/23 sertraline 50 mg tablet 50 mg PO DAILY #90 tabs 04/04/23 05/26/23 isosorbide mononitrate 30 mg 30 mg PO DAILY 04/11/23 05/26/23 tablet,extended release 24 hr lorazepam 1 mg tablet 1 mg PO ONCE #1 tab 05/28/23 meclizine 25 mg tablet 25 mg PO TID PRN dizziness #60 tabs 06/02/23 Previous Rx's Medication Instructions Recorded levothyroxine 88 mcg tablet 88 mcg PO DAILY #90 tab-caps 11/14/22 sertraline 50 mg tablet 50 mg PO DAILY #90 tabs 04/04/23 lorazepam 1 mg tablet 1 mg PO ONCE #1 tab 05/28/23 meclizine 25 mg tablet 25 mg PO TID PRN dizziness #60 tabs 06/02/23 Allergies Allergy/AdvReac Type Severity Reaction Status Date / Time diphenhydramine HCl AdvReac Mild can't Verified 06/25/23 13:54 [From Benadryl] function General Stated Complaint: Chest Pain BRIONNA: 2 Review of Systems All systems reviewed & are unremarkable except as noted in HPI and below Cardiovascular Cardiovascular: Reports as per HPI, Reports chest pain, Denies diaphoresis, Reports lightheadedness (Resolved, while at work) and Reports radiating jaw, neck or arm pain Respiratory Respiratory: Denies change in phlegm color, Denies chest congestion, Reports cough and Denies wheezing Gastrointestinal Gastrointestinal: Denies abdominal pain, Reports diarrhea, Denies nausea and Denies vomiting Allergic/Immunologic Allergic/Immunologic: Denies wheezing PFSH All Active Problems Tear of triangular fibrocartilage complex (TFCC) of right wrist (Acute) Coronary artery disease (Chronic) S/p ANGELES to LAD 08/08 Obstructive sleep apnea (Chronic) PSG 08/2016 Depressive disorder (Chronic) Hyperlipidemia (Chronic) Hypothyroidism (Chronic) Prediabetes (Chronic) Irritable bowel syndrome (Chronic) Allergic rhinitis (Chronic) Essential tremor (Chronic) Right carpal tunnel syndrome (Chronic) Mild on EMG testing 03/05 Migraine headache without aura (Chronic) Anogenital lichen sclerosus (Acute) Elevated alkaline phosphatase level (Chronic) Chronic, normal GGT, ?bone disorder Lichen sclerosus et atrophicus of the vulva (Acute) Bx Proven, 07/2022 BPPV (benign paroxysmal positional vertigo) (Acute) Tubular adenoma of colon (Chronic) Surgical History History of esophagogastroduodenoscopy (07/31/16) S/P colonoscopy (01/29/22) S/P coronary artery stent placement (08/08/22) ANGELES to LAD S/P left knee arthroscopy (05/15/16) With microfracture of chondral lesion of medial femoral condyle and partial medial meniscectomy Status post cholecystectomy Status post laparoscopic supracervical hysterectomy (~2008) For AUB Family History Mother Essential hypertension Alzheimer disease IBS (irritable bowel syndrome) Father , at 54 of colon cancer Colon cancer Sister No problems noted. Brother Essential hypertension Son Depression Son No problems noted. 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 Pets and animals: Yes Pets and animals: cat(s), dog(s) and farm animals Current gender identity: female What is your relationship status?: How often do you talk on the phone with friends or family?: decline to answer How often do you get together with friends or relatives?: decline to answer How often do you attend moravian or amish services?: decline to answer Do you belong to any clubs or organized social groups?: decline to answer Panel score (0-1 are the most socially isolated patients): 1 What type of physical activity do you participate in: decline to answer Duration: 45-60 minutes/day Frequency: 3-4 times per week Cherelle/Mandaeism: Nondenominational Special cherelle needs: No Seatbelt use: always Helmet use: Yes Helmet use: always Do you feel safe at home: Yes Do you feel safe in your relationship?: Yes History History 3 Para 2 Hx # Term Pregnancies Multiple births Hx # Pregnancies Ectopic pregnancies AB induced Hx Number of Living Children 2 AB spontaneous 1 Exam Narrative Exam Narrative: Constitutional: Alert and oriented x3. Appears stated age. Obese body habitus. Head: Normocephalic, no trauma. Eyes: Pupils PERRL, EOM's intact. Eyelids symmetrical without lesions, discharge, or swelling. Chest: RRR, Normal S1, S2, distal pulses intact. Resp: Lungs clear to auscultation bilaterally, no wheezes, rales, or rhonchi. Abdomen: Soft, non-distended, Normoactive bowel sounds all 4 quads. Musculoskeletal: unable to assess gait, 5/5 strength to all four extremities. Skin: No suspicious rashes or lesions. Capillary refill less than 2 sec. no significant pitting edema noted bilateral lower extremities, patient reports that she does notice swelling in her lower extremities with prolonged standing. Neurologic: Cranial nerves II-XII intact. Alert and oriented x 3. Motor: No deficits noted. Sensory: Intact bilaterally all 4 extremities. Hematologic/Lymphatic: No ecchymosis, no lymphadenopathy. Course Vital Signs Vital signs: Vital Signs Temperature 36.7 C 06/25/23 13:48 Pulse 67 06/25/23 13:48 Respiratory Rate 23 06/25/23 13:48 Blood Pressure 129/74 06/25/23 13:48 Pulse Oximetry 96 06/25/23 13:48 Temperature 36.7 C 06/25/23 13:48 Temperature Source Oral 06/25/23 13:48 Pulse 67 06/25/23 13:48 Respiratory Rate 23 06/25/23 13:48 Respiratory Effort Normal 06/25/23 14:34 Respiratory Depth Normal 06/25/23 14:34 Respiratory Pattern Normal 06/25/23 14:34 Blood Pressure 129/74 06/25/23 13:48 Blood Pressure Position Sitting 06/25/23 13:48 Pulse Oximetry 96 06/25/23 13:48 Oxygen Delivery Method Room Air 06/25/23 13:48 Oxygen Flow Rate 0 06/25/23 13:48 Pain Level 0 06/25/23 13:48 Lab/Test Results Lab/Test Results: Laboratory Tests Range/Units 06/25/23 06/25/23 06/25/23 14:01 14:01 14:01 WBC (4.4-10.8) 10^3/uL 5.33 RBC (3.93-5.22) 10^6/uL 4.42 Hgb (11.2-15.7) g/dL 13.2 Hct (36.0-46.0) % 40.0 MCV (80-95) fL 91 MCH (27.0-33.0) pg 29.9 MCHC (32.0-36.0) % 33.0 RDW (11.7-14.6) % 12.7 Plt Count (130-400) 10^3/uL 274 MPV (8.0-11.0) fL 8.5 Immature Gran % 0.2 Neutrophils % 56.7 Lymphocytes % 33.6 Monocytes % 6.8 Eosinophils % 1.9 Basophils % 0.8 Nucleated RBC % (0.0-0.3) % 0.0 Absolute Neutrophils (1.2-6.7) 10^3/uL 3.03 Absolute Lymphocytes (1.2-3.4) 10^3/uL 1.79 Absolute Monocytes (0.1-0.8) 10^3/uL 0.36 Absolute Eosinophils (0.0-0.7) 10^3/uL 0.10 Absolute Basophils (0.0-0.2) 10^3/uL 0.04 PT (9.3-11.0) sec 10.9 INR (0.9-1.1) 1.1 APTT (21.5-31.9) sec 26.5 Sodium (136-145) mmol/L 144 Potassium (3.5-5.1) mmol/L 4.1 Chloride (98-107) mmol/L 106 Carbon Dioxide (21.0-32.0) mmol/L 27.4 Anion Gap (3-11) mmol/L 10.6 BUN (7-18) mg/dL 10 Creatinine (0.55-1.02) mg/dL 0.8 Est GFR (CKD-EPI 2020) (mL/min/1.73m2) 84.82 Glucose (74-106) mg/dL 100 Calcium (8.5-10.1) mg/dL 9.2 Magnesium (1.8-2.4) mg/dL 2.2 Total Bilirubin (0.2-1.0) mg/dL 0.6 AST (15-37) U/L 19 ALT (14-59) U/L 26 Alkaline Phosphatase (46-116) U/L 157 H Troponin I (<or=60) ng/L < 50 NT-Pro-B Natriuret Pep (<300) pg/mL 92 Total Protein (6.4-8.2) g/dL 7.7 Albumin (3.4-5.0) g/dL 3.9 Sign Out Sign Out Data: Sign Out Comment: Pending serial Troponin at approx 1700. Consider consult [facility] cardiology and/ or admission for chest pain rule out due to history and presentation. Hx CAD with Stent placed 2021 @ [facility]. Began with chest pain, dizziness, left jaw pain and numbness while at work today. Took 1 0.4mg SL nitro which relieved her pain, still has left jaw numbness. Yesterday reports left arm was killing me. Denies Chest pain upon arrival. Initial Workup WNL, On Plavix, Asa 81mg, Imdur and others and took her normal medications today. Wells criteria low risk PE, Heart Score 5 tad. Last updated by Reta Abdalla, FREDRICK at 06/25/23 15:40
--- NOTE | 2023-06-25 15:46 | ED.PROG_ITS ---
Date of service: 06/25/23 Time of Service: 15:47 Medical Decision Making This patient was signed out to me. Please see previous notes for H&P and initial eval. In brief, 57yo F with signficant prior cardiac history including CAD with stent in 2021, reports known other vessel disease, on home plavix, imdur, nitro, presenting with intermittent chest pain with assoicated dizziness and left jaw pain. Symptoms impropved by home nitro. Took 81mg ASA at home prior to arrival. No chest pain on arrival in the ED. EKG with no ischemic changes, normal CXR, labs reassuring with normal initial troponin. Pending delta troponin. Given high-risk chest pain despite age and gender, will plan to discuss with cardiology and likely at least overnight observation even if delta troponin negative. Completed full dose of ASA. Delta troponin negative, repeat EKG with no dynamic changes, no indication of occlusive VT. Remains chest pain in the ED. Discussed with cardiology at [facility]; plan for heparin gtt and transfer to [facility] (Dr. Moore accepting) when bed available. Discussed with Dr. Brown and will admit to [facility] pending [facility] bed placement. Lab Data Lab results reviewed: Yes I reviewed the patient's lab results. Labs: Laboratory Tests Range/Units 06/25/23 06/25/23 06/25/23 14:01 14:01 14:01 WBC (4.4-10.8) 10^3/uL 5.33 RBC (3.93-5.22) 10^6/uL 4.42 Hgb (11.2-15.7) g/dL 13.2 Hct (36.0-46.0) % 40.0 MCV (80-95) fL 91 MCH (27.0-33.0) pg 29.9 MCHC (32.0-36.0) % 33.0 RDW (11.7-14.6) % 12.7 Plt Count (130-400) 10^3/uL 274 MPV (8.0-11.0) fL 8.5 Immature Gran % 0.2 Neutrophils % 56.7 Lymphocytes % 33.6 Monocytes % 6.8 Eosinophils % 1.9 Basophils % 0.8 Nucleated RBC % (0.0-0.3) % 0.0 Absolute Neutrophils (1.2-6.7) 10^3/uL 3.03 Absolute Lymphocytes (1.2-3.4) 10^3/uL 1.79 Absolute Monocytes (0.1-0.8) 10^3/uL 0.36 Absolute Eosinophils (0.0-0.7) 10^3/uL 0.10 Absolute Basophils (0.0-0.2) 10^3/uL 0.04 PT (9.3-11.0) sec 10.9 INR (0.9-1.1) 1.1 APTT (21.5-31.9) sec 26.5 Sodium (136-145) mmol/L 144 Potassium (3.5-5.1) mmol/L 4.1 Chloride (98-107) mmol/L 106 Carbon Dioxide (21.0-32.0) mmol/L 27.4 Anion Gap (3-11) mmol/L 10.6 BUN (7-18) mg/dL 10 Creatinine (0.55-1.02) mg/dL 0.8 Est GFR (CKD-EPI 2020) (mL/min/1.73m2) 84.82 Glucose (74-106) mg/dL 100 Calcium (8.5-10.1) mg/dL 9.2 Magnesium (1.8-2.4) mg/dL 2.2 Total Bilirubin (0.2-1.0) mg/dL 0.6 AST (15-37) U/L 19 ALT (14-59) U/L 26 Alkaline Phosphatase (46-116) U/L 157 H Troponin I (<or=60) ng/L < 50 NT-Pro-B Natriuret Pep (<300) pg/mL 92 Total Protein (6.4-8.2) g/dL 7.7 Albumin (3.4-5.0) g/dL 3.9 Sign Out Sign Out Data: Sign Out Comment: Pending serial Troponin at approx 1700. Consider consult [facility] cardiology and/ or admission for chest pain rule out due to history and presentation. Hx CAD with Stent placed 2021 @ [facility]. Began with chest pain, dizziness, left jaw pain and numbness while at work today. Took 1 0.4mg SL nitro which relieved her pain, still has left jaw numbness. Yesterday reports left arm was killing me. Denies Chest pain upon arrival. Initial Workup WNL, On Plavix, Asa 81mg, Imdur and others and took her normal medications today. Wells criteria low risk PE, Heart Score 5 tad. Last updated by Reta Abdalla NP at 06/25/23 15:40 Discharge Plan Disposition Patient Disposition: Admit to [facility] Condition: Serious Discharge Details Chief Complaint: Chest Pain Clinical Impression: Angina pectoris, unstable Primary Care Provider: Carol Kruger ED Provider: Reva Martinez Cadott Meds and New Rx's Prescriptions: No Action isosorbide mononitrate 30 mg tablet extended release 24 hr 30 mg PO DAILY Centrum Silver 1 EACH tablet 1 ea PO DAILY metoprolol succinate 25 mg tablet extended release 24 hr 25 mg PO DAILY levothyroxine 88 mcg tablet 88 mcg PO DAILY Qty: 90 3RF amlodipine 2.5 mg tablet 2.5 mg PO DAILY sertraline 50 mg tablet 50 mg PO DAILY Qty: 90 3RF Rx Instructions: Take 1 tab daily lorazepam 1 mg tablet 1 mg PO ONCE Qty: 1 0RF Rx Instructions: Take 15-30min before MRI meclizine 25 mg tablet 25 mg PO TID PRN (Reason: dizziness) Qty: 60 1RF clobetasol [Temovate] 0.05 % ointment 1 applic topical BID PRN atorvastatin 40 mg Tablet 40 mg PO QHS clopidogrel 75 mg Tablet 75 mg PO DAILY nitroglycerin [Nitrostat] 0.4 mg Tablet, Sublingual 0.4 mg sublingual PRN PRN aspirin 81 mg Tablet 81 mg PO DAILY
--- NOTE | 2023-06-25 17:00 | RT.EKG_ITS ---
APPROVED REPORT Exam: Resting ECG Reason for Exam: Repeat EKG Patient Location: E HR:58 bpm ECG Measurements Heart Rate 58 AXIS MS 168 P 36 QRSd 101 QRS -1 QT 448 T 50 QTc 442 Conclusion Sinus bradycardia...rate< [address] segment or T wave abnormalities to suggest occlusive NH
[2023-06-25] MEDS: Aspirin 81 MG CHEW 243 MG CH (17:17)
[2023-06-25 17:40] LABS: Troponin I < 50 ng/L (<or=60)
[2023-06-25] MEDS: Heparin in 0.45% NaCl 25,000 UNIT/250 ML BAG 10 UNIT IV (18:29)
--- NOTE | 2023-06-25 22:20 | HPE_ITS ---
Date of service: 06/25/23 Time of Service: 22:20 Assessment and Plan Assessment and plan (1) Angina pectoris, unstable: Status: Acute Assessment and plan: Recurrent chest pain since yesterday with more sever episode today in this patient with known CAD is consistent with unstable angina. Fortunately her troponins and EKGs look reassuring several hours after the more severe event started so I will not run more troponins unless the pain gets worse again. Per review with [facility] cardiology she has been started on heparin drip and given aspirin, I will continue aspirin, heparin, clopidogrel along with her statin and metoprolol. No signs of CHF. (2) Coronary artery disease: Status: Chronic Assessment and plan: As above, will continue her outpatient medical regimen along with antico agulation. Her LDL was <70 on this dose of statin. (3) Obstructive sleep apnea: Status: Chronic Assessment and plan: She uses an oral appliance at home, does not tolerate CPAP/BiPAP. (4) Hypothyroidism: Assessment and plan: TSH has been stable, conintue outpatient levothyroxine. (5) DVT prophylaxis: Status: Acute Assessment and plan: she is on full dose heparin drip (6) Discharge planning issues: Status: Acute Assessment and plan: NPO after tonight pending possible transfer in the AM for cardiac catheterization. History of Present Illness History of Present Illness Chief Complaint: chest pain Narrative: 57 yo F with history of CAD, s/p PCI/stent to LAD in 07/2022 who presented to the emergency room on the afternoon of admission after haveing a more severe episode of chest pain that had been recurring since the day before. She first noted some mild left sided chest discomfort the morning of the day prior to admission while she was getting ready for work in the bathroom. She describes mild strain, and felt it was likely muscular. It came and went all day while working her job at the [employer]. She took 650mg acetaminophen (Tylenol 8hr muscle relief) before bed and was able to sleep well. 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 The pain then started in the left chest and into her jaw. Pain was moderate, but also associated with a numb and heavy feeling in the chest and jaw. She felt slightly dizzy and cloudy headed. She excused herself and went to take a NTG. This helped, but didn't totally releive the pain and she decided to go to the ED. The pain resolved during the time she was in the ED, she isn't sure exactly how long it lasted. She still has a slight numb feeling in the left jaw that is residual. She was last seen by cardiology in May and was started on isosorbide for some ongoing stable anginal symptoms. She takes her medication regularly, no other recent changes. This pain today was similar to when she was diagnosed with he art disease, but that time she had pain and numbness into both arms and back. Review of Systems Constitutional Constitutional: Denies anorexia, Denies chills, Denies fever(s), Reports headache(s) (chronic headache, had mildly earlier today, has resolved), Denies poor appetite and Denies weakness Eyes Eyes: Denies change in vision and Denies irritation ENT Ears, Nose, Mouth, and Throat: Reports headache(s) (chronic headache, had mildly earlier today, has resolved), Denies mouth lesions, Reports nasal congestion (has some chronic allergies), Denies nasal discharge and Denies sore throat Cardiovascular Cardiovascular: Reports as per HPI, Reports palpitations (felt some heavy heart beats with episode today), Denies dyspnea and Denies orthopnea Respiratory Respiratory: Reports cough (some dry cough, not new), Denies excessive phlegm production, Denies dyspnea and Denies wheezing Gastrointestinal Gastrointestinal: Denies abdominal pain, Denies heartburn, Reports loose stools (chronic), Denies nausea and Denies vomiting Genitourinary Genitourinary: Denies hematuria, Denies dysuria and Denies urinary incontinence Musculoskeletal Musculoskeletal: Denies arthralgias Integumentary/Breasts Skin/Breast: Denies rash and Denies skin ulcer Neurologic Neurologic: Reports headache(s) (chronic headache, had mildly earlier today, has resolved), Denies sensory deficit and Denies weakness Psychiatric Psychiatric: Denies mood swings and Denies panic attacks Endocrine Endocrine: Reports palpitations (felt some heavy heart beats with episode today) Hematologic/Lymphatic Hematologic/Lymphatic: Denies easy bleeding Allergic/Immunologic Allergic/Immunologic: Denies wheezing PFSH All Active Problems (Updated 06/25/23 @ 22:55 by Avery Brown) Discharge planning issues (Acute) DVT prophylaxis (Acute) Angina pectoris, unstable (Acute) Tear of triangular fibrocartilage complex (TFCC) of right wrist (Acute) Coronary artery disease (Chronic) S/p ANGELES to LAD 08/08 Obstructive sleep apnea (Chronic) PSG 08/2016 Prediabetes (Chronic) Allergic rhinitis (Chronic) Essential tremor (Chronic) Right carpal tunnel syndrome (Chronic) Mild on EMG testing 03/05 Lichen sclerosus et atrophicus of the vulva (Acute) Bx Proven, 07/2022 Tubular adenoma of colon (Chronic) Medical History (Updated 06/25/23 @ 22:55 by Avery Brown) Anogenital lichen sclerosus BPPV (benign paroxysmal positional vertigo) Depressive disorder Elevated alkaline phosphatase level Chronic, normal GGT, ?bone disorder Hyperlipidemia Hypothyroidism Irritable bowel syndrome Migraine headache without aura Surgical History History of esophagogastroduodenoscopy (07/31/16) S/P colonoscopy (01/29/22) S/P coronary artery stent placement (08/08/22) ANGELES to LAD S/P left knee arthroscopy (05/15/16) With microfracture of chondral lesion of medial femoral condyle and partial medial meniscectomy Status post cholecystectomy Status post laparoscopic supracervical hysterectomy (~2008) For AUB Family History Mother Essential hypertension Alzheimer disease IBS (irritable bowel syndrome) Father , at 54 of colon cancer Colon cancer Sister No problems noted. Brother Essential hypertension Son Depression Son No problems noted. 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 [employer] Pets and animals: Yes Pets and animals: cat(s), dog(s) and farm animals Current gender identity: female What is your relationship status?: How often do you talk on the phone with friends or family?: decline to answer How often do you get together with friends or relatives?: decline to answer How often do you attend religious or gnosticism services?: decline to answer Do you belong to any clubs or organized social groups?: decline to answer Panel score (0-1 are the most socially isolated patients): 1 What type of physical activity do you participate in: decline to answer Duration: 45-60 minutes/day Frequency: 3-4 times per week Cherelle/Bahai: Confucianist Special cherelle needs: No Seatbelt use: always Helmet use: Yes Helmet use: always Do you feel safe at home: Yes Do you feel safe in your relationship?: Yes Additional Social history: Lives with and son in [place] History History 3 Para 2 Hx # Term Pregnancies Multiple births Hx # Pregnancies Ectopic pregnancies AB induced Hx Number of Living Children 2 AB spontaneous 1 Meds Allergies and Home Medications Allergies Allergy/AdvReac Type Severity Reaction Status Date / Time diphenhydramine HCl AdvReac Mild can't Verified 06/25/23 13:54 [From Balta] function Home Medications Medication Instructions Recorded Confirmed Type qictjvyn-wnc-awdil acid 0.4 1 ea PO DAILY 08/14/17 05/26/23 History mg-lycopene 300 mcg-lutein 250 mcg tablet (Centrum Silver) aspirin 81 mg tablet 81 mg PO DAILY 08/14/22 06/25/23 History atorvastatin 40 mg tablet 40 mg PO QHS 08/14/22 06/25/23 History clopidogrel 75 mg tablet 75 mg PO DAILY 08/14/22 06/25/23 History nitroglycerin 0.4 mg sublingual 0.4 mg sublingual PRN PRN 08/14/22 06/25/23 History tablet (Nitrostat) metoprolol succinate 25 mg 25 mg PO DAILY 09/26/22 06/25/23 History tablet,extended release 24 hr clobetasol 0.05 % topical ointment 1 applic topical BID PRN 11/13/22 05/26/23 History (Temovate) levothyroxine 88 mcg tablet 88 mcg PO DAILY #90 tab-caps 11/14/22 06/25/23 Rx amlodipine 2.5 mg tablet 2.5 mg PO DAILY Angina 11/28/22 06/25/23 History sertraline 50 mg tablet 50 mg PO DAILY #90 tabs 04/04/23 06/25/23 Rx isosorbide mononitrate 30 mg 30 mg PO DAILY 04/11/23 06/25/23 History tablet,extended release 24 hr lorazepam 1 mg tablet 1 mg PO ONCE #1 tab 05/28/23 Rx meclizine 25 mg tablet 25 mg PO TID PRN dizziness #60 tabs 06/02/23 Rx Exam Narrative Exam Narrative: GEN: Alert and oriented, pleasant and cooperative, gives linear history. No acute distress at rest. HEENT: Head atraumatic. Conjunctiva clear, no icterus. PEERL, EOMI. no rhinorrhea. MMM, OP benign. Neck is supple with no masses or lymphadenopathy, trachea midline LUNGS: CTAB with normal effort CV: RRR with no murmurs, gallops, or rubs. ABD: +BS, soft, NT/ND EXT: no cyanosis, clubbing, or edema. Legs not tender to palpation MSK: No joint redness or swelling NEURO: CN 2-12 grossly intact. Normal movement of 4 extremities. Normal speech and coordination SKIN: No rashes or open wounds. PSYCH: normal mood and affect Results Imaging Chest x-ray: report reviewed (No acute findings.) and image reviewed EKG: report reviewed and image reviewed (NSR to mild Sinus Bradycardia, no ischemic change. No evoluation on 2 EKGs, no significant change from April 15 EKG) Labs 06/25/23 14:01 06/25/23 14:01 Labs: Laboratory Results - last 24 hr 06/25/23 06/25/23 06/25/23 14:01 14:01 14:01 WBC 5.33 RBC 4.42 Hgb 13.2 Hct 40.0 MCV 91 MCH 29.9 MCHC 33.0 RDW 12.7 Plt Count 274 MPV 8.5 Immature Gran % 0.2 Neutrophils % 56.7 Lymphocytes % 33.6 Monocytes % 6.8 Eosinophils % 1.9 Basophils % 0.8 Nucleated RBC % 0.0 Absolute Neutrophils 3.03 Absolute Lymphocytes 1.79 Absolute Monocytes 0.36 Absolute Eosinophils 0.10 Absolute Basophils 0.04 PT 10.9 INR 1.1 APTT 26.5 Sodium 144 Potassium 4.1 Chloride 106 Carbon Dioxide 27.4 Anion Gap 10.6 BUN 10 Creatinine 0.8 Est GFR (CKD-EPI 2020) 84.82 Glucose 100 Calcium 9.2 Magnesium 2.2 Total Bilirubin 0.6 AST 19 ALT 26 Alkaline Phosphatase 157 H Troponin I < 50 NT-Pro-B Natriuret Pep 92 Total Protein 7.7 Albumin 3.9 06/25/23 17:07 WBC RBC Hgb Hct MCV MCH MCHC RDW Plt Count MPV Immature Gran % Neutrophils % Lymphocytes % Monocytes % Eosinophils % Basophils % Nucleated RBC % Absolute Neutrophils Absolute Lymphocytes Absolute Monocytes Absolute Eosinophils Absolute Basophils PT INR APTT Sodium Potassium Chloride Carbon Dioxide Anion Gap BUN Creatinine Est GFR (CKD-EPI 2020) Glucose Calcium Magnesium Total Bilirubin AST ALT Alkaline Phosphatase Troponin I < 50 NT-Pro-B Natriuret Pep Total Protein Albumin Last Vital Signs Temp 36.6 C 06/25/23 21:20 Pulse 61 06/25/23 21:36 Resp 11 L 06/25/23 21:31 BP 125/64 06/25/23 21:31 Pulse Ox 97 06/25/23 21:20 Time Spent Time spent with Patient: 55-74 minutes Time was spent: preparing to see the patient(eg.review tests), obtaining and/or reviewing separately otained hiistory, ordering medications,tests, procedures, referring, communicating with other health care analyst, indepentently i nterpreting results and counseling the patient
[2023-06-25] MEDS: Atorvastatin 40 MG TAB PO (22:23)
[2023-06-26] VITALS (10 sets, daily range): BP systolic 105–127; BP diastolic 61–80; PULSE 54–89; RESP 14–18; TEMP 36.1–36.9; O2SAT 93–96
[2023-06-26 01:11] LABS: PTT Activated 70.8 sec (21.5-31.9)
--- NOTE | 2023-06-26 01:14 | NUR.NOTE ---
pt transferred to med surg. Ptt drawn before hand. report given to Shayy GLOVER.
--- NOTE | 2023-06-26 01:15 | NUR.NOTE ---
pt to be NPO after 0200 for possible cath tomorrow. Nurse aware from report.
--- NOTE | 2023-06-26 01:56 | NUR.NOTE ---
Report received from Shira Spear. Pt transferred to room 230 via w/c. vss, afebrile. heparin drip running at 10ml/hr. Aptt 70.8 no change necessary. Next draw at 0730. Pt denies cp/pressure.Resting in bed, call light within reach.
[2023-06-26] MEDS: Levothyroxine 88 MCG TAB PO (06:00)
[2023-06-26] MEDS: Sertraline 50 MG TAB PO (08:15)
[2023-06-26] MEDS: amLODIPine 2.5 MG TAB PO (08:15)
[2023-06-26] MEDS: Aspirin 81 MG CHEW PO (08:15)
[2023-06-26] MEDS: Metoprolol CR 25 MG TABCR PO (08:15)
[2023-06-26] MEDS: Isosorbide Mononitrate 30 MG TABCR PO (08:15)
[2023-06-26] MEDS: Clopidogrel 75 MG TAB PO (08:15)
[2023-06-26 08:33] LABS: PTT Activated 60.1 sec (21.5-31.9)
--- NOTE | 2023-06-26 12:31 | PDOC.CMIN ---
Date of service: 06/26/23 Time of Service: 12:31 Care Management Initial Assmt Initial Assessment REASON FOR HOSPITALIZATION:: Angina pectoris, unstable PREVIOUS FUNCTIONAL STATUS/SOCIAL/FAMILY SUPPORTS:: Annie lives in [place] with her Kali and her two adult sons. Annie drives and is independent with her ADL/IADL's at baseline. Annie shares that she had a Stent placed last July. She's been out of work due to restrictions set by [employer] but recently started working at [employer] in [place]. She has financial concerns related to her hospital bills and would like a referral to [facility]. CURRENT FUNCTIONAL STATUS:: Annie was lying in bed, visiting with her Kali who is sitting in the recliner. Annie is waiting to find out if she is transferring to [facility]. Pt reports that she had a Stent placed last July and has three similar episodes since. ADVANCE DIRECTIVES:: None on file. Has patient been provided with info about the portal/API?: Yes Did the patient sign up for the portal?: No CODE STATUS:: Full Code INSURANCE COVERAGE / FINANCIAL ISSUES:: [employer] CURRENT HOME/COMMUNITY SERVICES/EQUIPMENT:: None PRIMARY CARE PHYSICIAN:: Carol Kruger POTENTIAL DISCHARGE NEEDS:: [facility] referral placed PATIENT/FAMILY EDUCATION NEEDS:: Review discharge instructions, limitations, medications and plan to follow up with community providers. Discuss ask me three. TRANSPORTATION:: Undetermined at this time. PLAN:: Annie is transferring to [facility] for a cardiac catheterization. Transportation will be coordinated by [facility]. CM will follow. PFSH All Active Problems Discharge planning issues (Acute) DVT prophylaxis (Acute) Angina pectoris, unstable (Acute) Tear of triangular fibrocartilage complex (TFCC) of right wrist (Acute) Coronary artery disease (Chronic) S/p ANGELES to LAD 08/08 Obstructive sleep apnea (Chronic) PSG 08/2016 Prediabetes (Chronic) Allergic rhinitis (Chronic) Essential tremor (Chronic) Right carpal tunnel syndrome (Chronic) Mild on EMG testing 03/05 Lichen sclerosus et atrophicus of the vulva (Acute) Bx Proven, 07/2022 Tubular adenoma of colon (Chronic) Medical History Anogenital lichen sclerosus BPPV (benign paroxysmal positional vertigo) Depressive disorder Elevated alkaline phosphatase level Chronic, normal GGT, ?bone disorder Hyperlipidemia Hypothyroidism Irritable bowel syndrome Migraine headache without aura Surgical History History of esophagogastroduodenoscopy (07/31/16) S/P colonoscopy (01/29/22) S/P coronary artery stent placement (08/08/22) ANGELES to LAD S/P left knee arthroscopy (05/15/16) With microfracture of chondral lesion of medial femoral condyle and partial medial meniscectomy Status post cholecystectomy Status post laparoscopic supracervical hysterectomy (~2008) For AUB Family History Mother Essential hypertension Alzheimer disease IBS (irritable bowel syndrome) Father , at 54 of colon cancer Colon cancer Sister No problems noted. Brother Essential hypertension Son Depression Son No problems noted. 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 [employer] Pets and animals: Yes Pets and animals: cat(s), dog(s) and farm animals Current gender identity: female What is your relationship status?: How often do you talk on the phone with friends or family?: decline to answer How often do you get together with friends or relatives?: decline to answer How often do you attend holiness or orthodox services?: decline to answer Do you belong to any clubs or organized social groups?: decline to answer Panel score (0-1 are the most socially isolated patients): 1 What type of physical activity do you participate in: decline to answer Duration: 45-60 minutes/day Frequency: 3-4 times per week Cherelle/Zoroastrian: Bahai Special cherelle needs: No Seatbelt use: always Helmet use: Yes Helmet use: always Do you feel safe at home: Yes Do you feel safe in your relationship?: Yes Additional Social history: Lives with and son in [place] History History 3 Para 2 Hx # Term Pregnancies Multiple births Hx # Pregnancies Ectopic pregnancies AB induced Hx Number of Living Children 2 AB spontaneous 1
[2023-06-26] MEDS: Heparin in 0.45% NaCl 25,000 UNIT/250 ML BAG 10 UNIT IV (14:52)
--- NOTE | 2023-06-26 15:58 | DSE_ITS ---
Date of service: 06/26/23 Time of Service: 15:58 DS: Diagnosis Discharge Diagnosis (1) Angina pectoris, unstable: Status: Acute Asessment and Plan: Heparin drip initiated per [facility] recommendations. On ASA, Plavix, metoprolol, Isosorbide and atorvastatin CP free since admission. (2) Coronary artery disease: Status: Chronic Asessment and Plan: As above. H/O CAD s/p PCI/stent to LAD in 07/2022. (3) Obstructive sleep apnea: Status: Chronic Asessment and Plan: She has not tolerated CPAP/BiPAP. Uses an oral appliance at home. (4) Hypothyroidism: Asessment and Plan: Stable TSH Cont outpt levothyroxine. (5) Discharge planning issues: Status: Acute Asessment and Plan: Transfer to [facility] for planned cardiac catheterization. Discharge Plan Disposition Patient Disposition: Transfer-Acute Inpatient Care Specific Acute Inpt Facility: [facility] Condition: Stable Discharge Details Reason For Visit: Unstable Angina Admit Date/Time: 06/25/23 20:09 Admit Provider: Avery Brown Attending Provider: Avery Brown Primary Care Provider: [facility] Hospital Course: 57 yo F with history of CAD, s/p PCI/stent to LAD in 07/2022 who presented to the emergency room on the afternoon of admission after having a more severe episode of chest pain that had been recurring since the day before.? She first noted some mild left sided chest discomfort the morning of the day prior to admission while she was getting ready for work in the bathroom.? She describes mild strain, and felt it was likely muscular.? It came and went all day while working her job at the [employer].? She took 650mg acetaminophen (Tylenol 8hr muscle relief) before bed and was able to sleep well.? 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 The pain then started in the left chest and into her jaw.? Pain was moderate, but also associated with a numb and heavy feeling in the chest and jaw.? She felt slightly dizzy and cloudy headed.? She excused herself and went to take a NTG.? This helped, but didn't totally releive the pain and she decided to go to the ED.? The pain resolved during the time she was in the ED, she isn't sure exactly how long it lasted.? She still has a slight numb feeling in the left jaw that is residual. She was last seen by cardiology in May and was started on isosorbide for some ongoing stable anginal symptoms.? She takes her medication regularly, no other recent changes.? Her pain was similar to when she was diagnosed with heart disease, but that time she had pain and numbness into both arms and back.? Her troponin was negtive x 2 in the ED. EKG w/o any concerning findings. ED physician consulted [facility] cardiolgy and the patient was accepted for transfer for a cardiac catheterization when a bed is available. A heparin drip was initiated. ASA, plavix, BB and statin prescribed. See Diagnosis ? Home Meds and New Rx's Prescriptions: No Action isosorbide mononitrate 30 mg tablet extended release 24 hr 30 mg PO DAILY Centrum Silver 1 EACH tablet 1 ea PO DAILY metoprolol succinate 25 mg tablet extended release 24 hr 25 mg PO DAILY levothyroxine 88 mcg tablet 88 mcg PO DAILY Qty: 90 3RF amlodipine 2.5 mg tablet 2.5 mg PO DAILY sertraline 50 mg tablet 50 mg PO DAILY Qty: 90 3RF Rx Instructions: Take 1 tab daily lorazepam 1 mg tablet 1 mg PO ONCE Qty: 1 0RF Rx Instructions: Take 15-30min before MRI meclizine 25 mg tablet 25 mg PO TID PRN (Reason: dizziness) Qty: 60 1RF clobetasol [Temovate] 0.05 % ointment 1 applic topical BID PRN atorvastatin 40 mg Tablet 40 mg PO QHS clopidogrel 75 mg Tablet 75 mg PO DAILY nitroglycerin [Nitrostat] 0.4 mg Tablet, Sublingual 0.4 mg sublingual PRN PRN aspirin 81 mg Tablet 81 mg PO DAILY Discharge Instructions Activity:: Bedrest; up to commode Equipment/Supplies:: No Equipment Needed Diet:: NPO after MN DS: Summary Time Spent with Patient providing and/or coordinating discharge services: Greater than 30 minutes Status at Discharge Functional status at discharge: independent ambulation Overall status at discharge: patient is not back to baseline Mental Status: mental status grossly normal Speech and Movement: speech and movement normal Mood: congruent mood Affect: normal affect Exam Psych Mental Status: mental status grossly normal Speech and Movement: speech and movement normal Mood: congruent mood Affect: normal affect DS: Data Vitals/I&O Vitals and I&O: Vital Signs Temperature 36.5 C 06/26/23 15:44 Temperature Source Tympanic 06/26/23 15:44 Pulse 67 06/26/23 15:44 Pulse Rhythm Regular 06/26/23 08:00 Pulse 63 06/25/23 23:40 Respiratory Rate 16 06/26/23 15:44 Respiratory Effort Normal 06/26/23 08:00 Respiratory Depth Normal 06/26/23 08:00 Respiratory Pattern Normal 06/26/23 08:00 Blood Pressure 105/66 06/26/23 15:44 Blood Pressure Mean 75 06/25/23 22:01 Blood Pressure Position Supine 06/25/23 21:20 Pulse Oximetry 95 06/26/23 15:44 Oxygen Delivery Method Room Air 06/26/23 15:44 Oxygen Flow Rate 0 06/26/23 15:44 Pain Level 0 06/26/23 15:44 Intake & Output 06/25/23 06/26/23 06/26/23 23:59 11:59 23:59 Intake Total 211.999 / 211.999 Output Total 300 / 300 Balance -300 / -300 211.999 / 211.999 Weight 84 kg Intake: IV 211.999 / 211.999 Output: Urine 300 / 300 Other: Urine Color Pale Yellow Urine Appearance Clear Clear Urine Odor None Comment partial hysterectomy Stool Size Moderate Stool Characteristics Liquid Voiding Methods Bedside Commode Toilet Data Completed and Pending Labs on day of discharge: Labs from last 24 hours 06/26/23 06/26/23 06/26/23 15:35 07:30 00:50 APTT Pending 60.1 H 70.8 H Troponin I 06/25/23 17:07 APTT Troponin I < 50 PFSH All Active Problems Discharge planning issues (Acute) DVT prophylaxis (Acute) Angina pectoris, unstable (Acute) Tear of triangular fibrocartilage complex (TFCC) of right wrist (Acute) Coronary artery disease (Chronic) S/p ANGELES to LAD 08/08 Obstructive sleep apnea (Chronic) PSG 08/2016 Prediabetes (Chronic) Allergic rhinitis (Chronic) Essential tremor (Chronic) Right carpal tunnel syndrome (Chronic) Mild on EMG testing 03/05 Lichen sclerosus et atrophicus of the vulva (Acute) Bx Proven, 07/2022 Tubular adenoma of colon (Chronic) Medical History Anogenital lichen sclerosus BPPV (benign paroxysmal positional vertigo) Depressive disorder Elevated alkaline phosphatase level Chronic, normal GGT, ?bone disorder Hyperlipidemia Hypothyroidism Irritable bowel syndrome Migraine headache without aura Surgical History History of esophagogastroduodenoscopy (07/31/16) S/P colonoscopy (01/29/22) S/P coronary artery stent placement (08/08/22) ANGELES to LAD S/P left knee arthroscopy (05/15/16) With microfracture of chondral lesion of medial femoral condyle and partial medial meniscectomy Status post cholecystectomy Status post laparoscopic supracervical hysterectomy (~2008) For AUB Family History Mother Essential hypertension Alzheimer disease IBS (irritable bowel syndrome) Father , at 54 of colon cancer Colon cancer Sister No problems noted. Brother Essential hypertension Son Depression Son No problems noted. 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 [employer] Pets and animals: Yes Pets and animals: cat(s), dog(s) and farm animals Current gender identity: female What is your relationship status?: How often do you talk on the phone with friends or family?: decline to answer How often do you get together with friends or relatives?: decline to answer How often do you attend jainism or uatsdin services?: decline to answer Do you belong to any clubs or organized social groups?: decline to answer Panel score (0-1 are the most socially isolated patients): 1 What type of physical activity do you participate in: decline to answer Duration: 45-60 minutes/day Frequency: 3-4 times per week Cherelle/Holiness: Christianity Special cherelle needs: No Seatbelt use: always Helmet use: Yes Helmet use: always Do you feel safe at home: Yes Do you feel safe in your relationship?: Yes Additional Social history: Lives with and son in [place] History History 3 Para 2 Hx # Term Pregnancies Multiple births Hx # Pregnancies Ectopic pregnancies AB induced Hx Number of Living Children 2 AB spontaneous 1 Time Spent with Patient Time Spent with Patient: 45-69 minutes Time was spent: preparing to see the patient(eg.review tests), obtaining and/or reviewing separately otained hiistory, ordering medications,tests, procedures, referring, communicating with other health career development engineer, indepentently interpreting results, counseling the patient and care coordination
[2023-06-26 16:13] LABS: PTT Activated 50.9 sec (21.5-31.9)
--- NOTE | 2023-06-26 16:16 | CHAPLAIN ---
Annie was in bed when I visited. She said she recognized the symptoms of chest and jaw pain and came in to the ED. Her has been here with her, but left to get something to eat. Annie said she's waiting to meet with the hospitalist to hear if she'll be transferred [place] [facility] [place] assistant [place]. She's frustrated not having a plan at the moment. I will continue to visit.
--- NOTE | 2023-06-26 16:26 | PDOC.CMDIS ---
Date of service: 06/26/23 Time of Service: 16:26 LACE Index Scoring Tool Questions: Length of Stay (in days): 1 Was the patient admitted via the E.D.?: Yes E.D. Visits: 1 Answers: Total Score: 5 Risk of Readmission: Low Risk Care Management Discharge Plan Reason for Hospitalization: Angina pectoris, unstable Discharge Plan: Annie is accepted in transfer at [facility] pending bed availability. Transportation will be coordinated by RN Filter Changing Technician. Patient/Family Education Needs: Review transfer instructions and ask me three.
[2023-06-26] MEDS: Atorvastatin 40 MG TAB PO (21:07)
[2023-06-26] MEDS: Acetaminophen 325 MG TAB PO (21:07)
--- NOTE | 2023-06-27 00:40 | NUR.NOTE ---
Report called to Gloria De Santiago RN., [facility]. Nursing Note:
== END 2023-06-26 23:05 | disposition short-term general hospital (02) | DRG 303 ==
LOC: ER 21:13 → ICU 21:42 → MS 06-26 01:12
PROVIDERS: Family Medicine; Registered Nurse Emergency; Admitting Provider Family Medicine; Emergency Provider Student in an Organized Health Care Education/Training Program; PCP Nurse Practitioner Family; Visit Provider Family Medicine
DX: I25.110 Atherosclerotic heart disease of native coronary artery with unstable angina pectoris (principal); E03.9 Hypothyroidism, unspecified; G47.33 Obstructive sleep apnea (adult) (pediatric); R73.03 Prediabetes; J30.9 Allergic rhinitis, unspecified; F32.A Depression, unspecified; K58.9 Irritable bowel syndrome, unspecified; G43.009 Migraine without aura, not intractable, without status migrainosus; E78.5 Hyperlipidemia, unspecified; H81.10 Benign paroxysmal vertigo, unspecified ear; G25.0 Essential tremor; G56.01 Carpal tunnel syndrome, right upper limb; N90.4 Leukoplakia of vulva
CPT/HCPCS: 36415; 80053; 93005; 99285; 71045; 83735; 83880; 84484; 85025; 85610; 85730; 93010; 93306; 99239

== ENCOUNTER 2023-08-15 10:00 | Outpatient (RCR) | payer OTHER, SELFPAY | END 2023-08-16 23:59 | disposition home or self-care (01) | LOC: CR 10:00 | PROVIDERS: PCP Nurse Practitioner Family; Referring Provider Hospitalist; Visit Provider Internal Medicine Cardiovascular Disease | DX: Z95.5 Presence of coronary angioplasty implant and graft (principal); Z98.61 Coronary angioplasty status; Z51.89 Encounter for other specified aftercare | CPT/HCPCS: S9472 ==

== ENCOUNTER → 2023-09-09 01:04 | Outpatient (CLI) | payer OTHER, SELFPAY ==
--- NOTE | 2023-09-09 07:45 | DI.MAMMO_ITS ---
Exam(s) MAMMO SCREENING EXAM: MAMMO SCREENING CLINICAL HISTORY: SCREENING, Z12.39 TECHNIQUE: Mammograms were interpreted according to the usual protocol including computer analysis w [employer] CAD system, tomosynthesis and C-view imaging. COMPARISON: 2012 through 2021 FINDINGS: The breasts are composed of heterogeneously dense fibroglandular densities, Breast Density category C . No suspicious masses or suspicious microcalcifications are seen. No skin thickening or abnormal axillary lymph nodes are seen. There has been no significant change from prior exams. IMPRESSION: BI-RADS Category 1, Negative mammogram. Yearly screening mammography is recommended. Breast Density Category C, heterogeneously Dense. The mammogram demonstrates the patient's breast tissue is dense. Dense breast tissue is very common a nd is not abnormal but dense breast tissue can make it harder to find cancer on a mammogram. Also, de nse breast tissue may increase breast cancer risk. This information about the result of the mammogram report was provided to the patient to raise their awareness. Use this report when you speak with the patient about their risks for breast cancer, which includes their family history. At that time, you may recommend additional screening tests (Ultrasound or MRI) as they might be useful based on their r isk. A negative radiographic report should not delay biopsy if a dominant or clinically suspicious mass is present. Up to ten percent of cancers are not identified on mammography. A negative report may reinforce clinical impression. Adenosis and dense breasts may obscure an underlying neoplasm. False positive reports average 6 to 10%.
== END ==
PROVIDERS: PCP Nurse Practitioner Family; Visit Provider Nurse Practitioner Family
DX: Z12.31 Encounter for screening mammogram for malignant neoplasm of breast (principal)
CPT/HCPCS: 77063; 77067

== ENCOUNTER 2023-09-15 10:43 | Outpatient (RCR) | payer OTHER, SELFPAY | END 2023-09-16 23:59 | disposition home or self-care (01) | LOC: CR 10:43 | PROVIDERS: PCP Nurse Practitioner Family; Referring Provider Hospitalist; Visit Provider Internal Medicine Cardiovascular Disease | DX: I25.10 Atherosclerotic heart disease of native coronary artery without angina pectoris (principal); Z51.89 Encounter for other specified aftercare | CPT/HCPCS: S9472 ==

== ENCOUNTER 2023-10-06 14:06 | Outpatient (CLI) | payer OTHER, SELFPAY ==
[2023-10-06 12:39] LABS: TSH (W/Ref FT4) 5.38 uIU/mL (0.36-3.74)
== END 2023-10-06 14:07 | disposition home or self-care (01) ==
LOC: LBO 14:06
PROVIDERS: PCP Nurse Practitioner Family; Visit Provider Nurse Practitioner Family
DX: E03.9 Hypothyroidism, unspecified (principal)
CPT/HCPCS: 36415; 84439; 84443

== ENCOUNTER 2023-10-15 09:43 | Outpatient (RCR) | payer OTHER, SELFPAY | END 2023-10-16 23:59 | disposition home or self-care (01) | LOC: CR 09:43 | PROVIDERS: PCP Nurse Practitioner Family; Referring Provider Hospitalist; Visit Provider Internal Medicine Cardiovascular Disease | DX: Z98.61 Coronary angioplasty status (principal); Z51.89 Encounter for other specified aftercare | CPT/HCPCS: S9472 ==

== ENCOUNTER 2023-11-12 10:20 | Outpatient (RCR) | payer OTHER, SELFPAY | END 2023-11-16 23:59 | disposition home or self-care (01) | LOC: CR 10:20 | PROVIDERS: PCP Nurse Practitioner Family; Referring Provider Hospitalist; Visit Provider Family Medicine | DX: Z95.5 Presence of coronary angioplasty implant and graft (principal); Z51.89 Encounter for other specified aftercare | CPT/HCPCS: S9472 ==

== ENCOUNTER 2023-11-21 10:42 | Outpatient (RCR) | payer OTHER, SELFPAY | END 2023-12-17 23:59 | disposition home or self-care (01) | LOC: CR 10:42 | PROVIDERS: PCP Nurse Practitioner Family; Referring Provider Hospitalist; Visit Provider Family Medicine | DX: Z95.5 Presence of coronary angioplasty implant and graft (principal); Z51.89 Encounter for other specified aftercare | CPT/HCPCS: S9472 ==

== ENCOUNTER 2023-12-17 13:09 | Outpatient (CLI) | payer OTHER, SELFPAY ==
[2023-12-17 11:03] LABS: TSH (W/Ref FT4) 1.05 uIU/mL (0.36-3.74)
== END 2023-12-17 13:10 | disposition home or self-care (01) ==
LOC: LBO 13:10
PROVIDERS: PCP Nurse Practitioner Family; Visit Provider Nurse Practitioner Family
DX: E03.9 Hypothyroidism, unspecified (principal)
CPT/HCPCS: 36415; 84443

== ENCOUNTER 2024-02-05 12:33 | Outpatient (REF) | payer OTHER, SELFPAY ==
[2024-02-05 12:23] LABS: Bilirubin Negative (Negative); Blood Negative (Negative); Clarity Cloudy (Clear); Glucose Negative (Negative); Ketones Negative (Negative); Leukocyte Esterase Negative (Negative); Nitrite Negative (Negative); Specific Gravity >= 1.030 (1.005-1.025); Urobilinogen 0.2 mg/dL (Up to 0.2)
== END 2024-02-05 12:34 | disposition home or self-care (01) ==
LOC: LBN 12:33
PROVIDERS: PCP Nurse Practitioner Family; Visit Provider Nurse Practitioner Family
DX: N39.0 Urinary tract infection, site not specified (principal); N76.0 Acute vaginitis
CPT/HCPCS: 81003; 87480; 87510; 87660

== ENCOUNTER 2024-07-15 11:40 | Outpatient (CLI) | payer BC, SELFPAY ==
[2024-07-15 13:05] LABS: Hemoglobin A1C 5.9 % (<5.7)
[2024-07-15 13:15] LABS: ALT 44 U/L (14-59); AST 25 U/L (15-37); Albumin 3.7 g/dL (3.4-5.0); Alkaline Phosphatase 138 U/L (46-116); Anion Gap 8.1 mmol/L (3-11); BUN 12 mg/dL (7-18); Bilirubin, Total 0.55 mg/dL (0.2-1.0); CO2 26.9 mmol/L (21.0-32.0); CREATININE 0.9 mg/dL (0.55-1.02); Calcium 9.2 mg/dL (8.5-10.1); Calculated LDL 84 mg/dL (<100); Chloride 106 mmol/L (98-107); Cholesterol 175 mg/dL (<200); Estimated GFR 72.73 (mL/min/1.73m2); Glucose 112 mg/dL (74-106); HDL Cholesterol 54 mg/dL (40-60); Potassium 4.1 mmol/L (3.5-5.1); Sodium 141 mmol/L (136-145); TSH (W/Ref FT4) 0.62 uIU/mL (0.36-3.74); Total Protein 7.7 g/dL (6.4-8.2); Triglyceride 186 mg/dL (<150)
[2024-07-16 00:08] LABS: HBs Antibody, Quant 26.6 mIU/mL (See Note); Hep B Surface Ab Positive (See Note); Hepatitis B Core Antibody Negative (Negative); Hepatitis B Surface Antigen Negative (Negative)
[2024-07-16 00:18] LABS: Hepatitis C Ab w Rflx HCV PCR Negative (Negative)
[2024-07-16 09:23] LABS: HIV-1/2 Ag & Ab Screen Negative (Negative)
== END 2024-07-15 11:41 | disposition home or self-care (01) ==
LOC: LOS 11:40
PROVIDERS: PCP Nurse Practitioner Family; Visit Provider Nurse Practitioner Family
DX: Z11.59 Encounter for screening for other viral diseases (principal); E03.9 Hypothyroidism, unspecified; R73.03 Prediabetes; E78.5 Hyperlipidemia, unspecified; I25.10 Atherosclerotic heart disease of native coronary artery without angina pectoris; Z11.4 Encounter for screening for human immunodeficiency virus [HIV]
CPT/HCPCS: 36415; 80053; 80061; 86704; 86706; 86803; 87340; 87389; 83036; 84443

== ENCOUNTER 2024-09-13 01:17 | Outpatient (CLI) | payer BC, SELFPAY ==
--- NOTE | 2024-09-13 07:15 | DI.MAMMO_ITS ---
Exam(s) MAMMO SCREENING EXAM: MAMMO SCREENING CLINICAL HISTORY: screening,z12.39 TECHNIQUE: Mammograms were interpreted according to the usual protocol including computer analysis w [employer] CAD system, tomosynthesis and C-view imaging. COMPARISON: 2013 through 2022 FINDINGS: The breasts are composed of scattered fibroglandular densities, Breast Density category B. No suspicious masses or suspicious microcalcifications are seen. No skin thickening or abnormal axillary lymph nodes are seen. There has been no significant change from prior exams. IMPRESSION: BI-RADS Category 1, Negative mammogram Yearly screening mammography is recommended. Breast Density - Category B, scattered fibroglandular densities. A negative radiographic report should not delay biopsy if a dominant or clinically suspicious mass is present. Up to ten percent of cancers are not identified on mammography. A negative report may reinforce clinical impression. Adenosis and dense breasts may obscure an underlying neoplasm. False positive reports average 6 to 10%. Patient will receive a letter notifying them of these results.
== END 2024-09-13 01:37 ==
PROVIDERS: PCP Nurse Practitioner Family; Visit Provider Nurse Practitioner Family
DX: Z12.31 Encounter for screening mammogram for malignant neoplasm of breast (principal)
CPT/HCPCS: 77063; 77067

== ENCOUNTER 2025-03-04 00:18 | Outpatient (CLI) | payer BC, SELFPAY ==
--- NOTE | 2025-03-04 06:45 | DI.US_ITS ---
Exam(s) US THYROID EXAM: US THYROID CLINICAL HISTORY: hypothyroidism, ? enlarged thyroid or nodules,DYSPHAGIA,E03.9,R13.10. TECHNIQUE: Ultrasound thyroid performed using standard protocol. COMPARISON: US US PELVIS TRANSVAGINAL from 02/09/2024 FINDINGS: Both thyroid lobes exhibit normal size, as does the isthmus.. There are no distinct thyroid nodules. However, the echotexture of the entire gland is diffusely heterogeneous. RIGHT THYROID LOBE: Measures 1.4 cm AP x 1.3 cm wide x 5.3 cm craniocaudal LEFT THYROID LOBE: Measures 1.5 cm AP x 1.5 wide x 4.6 cm craniocaudal LYMPH NODES: There is no significant adenopathy. IMPRESSION: 1. The echotexture of the entire thyroid gland is heterogeneous. Gland size is normal. 2. There are no thyroid nodules evident. 3. There is no significant lymphadenopathy. DATA REPOSITORY:
[2025-03-04] MEDS: Barium Sulfate 60% W/V 355 ML BTL PO (11:01)
[2025-03-04] MEDS: Barium Sulfate 98% W/W 140 ML BTL PO (11:01)
--- NOTE | 2025-03-04 11:02 | DI.RAD_ITS ---
Exam(s) RF BARIUM SWALLOW EXAM: RF BARIUM SWALLOW CLINICAL HISTORY: feeling of getting food or pilLs stuck,DYSPHAGIA,R13.10 TECHNIQUE: 2D and realtime digital imaging was performed. CONTRAST MATERIAL: Oral barium Oral water soluble contrast was administered. COMPARISON: No exams were available for comparison FINDINGS: ESOPHAGRAM: Performed both standing and MOLINA recumbent. Swallowing mechanism appears grossly intact. There was no aspiration. No hyperintense upper esophag eal sphincter demonstrated and no evidence of Zenker's diverticulum. There are no fixed lesions in t he esophagus. No evidence of achalasia. No abnormal tertiary waves. No diverticuli. No evidence o f hiatal hernia nor Schatzki ring. Minimal reflux seen when patient was placed recumbent. IMPRESSION: No significant focal findings on this esophagram. However I note the patient informs me that she is having trouble swallowing things. In this case it may be prudent to perform a ???modified barium swa llow study??? in our department in conjunction with the speech therapist. RADIATION DOSE DELIVERED: sai Bradshaw=22.2 mGy
== END 2025-03-04 00:38 ==
LOC: DI 00:18
PROVIDERS: PCP Nurse Practitioner Family; Visit Provider Nurse Practitioner Family
DX: E03.9 Hypothyroidism, unspecified (principal); R13.10 Dysphagia, unspecified
CPT/HCPCS: 74221; 76536; J3490

== ENCOUNTER 2025-03-04 00:51 | Outpatient (CLI) | payer BC, SELFPAY ==
[2025-03-04 09:46] LABS: Abs Immature Grans 0.02 10^3/uL (0.0-0.06); Absolute Basophil Count 0.06 10^3/uL (0.0-0.2); Absolute Eosinophil Count 0.18 10^3/uL (0.0-0.7); Absolute Lymphocyte Count 1.81 10^3/uL (1.2-3.4); Absolute Monocyte Count 0.33 10^3/uL (0.1-0.8); Absolute Neutrophil Count 3.15 10^3/uL (1.2-6.7); Basophils % 1.1 %; Eosinophils % 3.2 %; HCT 42.4 % (36.0-46.0); HGB 13.9 g/dL (11.2-15.7); Immature Grans % 0.4 %; Lymphocytes % 32.6 %; MCH 30.5 pg (27.0-33.0); MCHC 32.8 % (32.0-36.0); MCV 93 fL (80-95); MPV 8.3 fL (8.0-11.0); Monocytes % 5.9 %; Neutrophils % 56.8 %; Platelet Count 298 10^3/uL (130-400); RBC 4.55 10^6/uL (3.93-5.22); RDW 13.1 % (11.7-14.6); RDW-SD 44.2 fL; WBC 5.55 10^3/uL (4.4-10.8)
[2025-03-04 09:48] LABS: ESR 22 mm/hr (0-30)
[2025-03-04 10:22] LABS: C-Reactive Protein < 0.50 mg/dL (<or=0.5)
== END 2025-03-04 00:52 | disposition home or self-care (01) ==
PROVIDERS: PCP Nurse Practitioner Family; Visit Provider Nurse Practitioner Family
DX: E03.9 Hypothyroidism, unspecified (principal); L28.2 Other prurigo
CPT/HCPCS: 36415; 85652; 84443; 85025; 86140

== ENCOUNTER 2025-07-15 01:19 | Outpatient (CLI) | payer BC, SELFPAY ==
[2025-07-15 12:41] LABS: Hemoglobin A1C 5.9 % (<5.7)
[2025-07-15 12:49] LABS: Anion Gap 8.4 mmol/L (3-11); BUN 8 mg/dL (7-18); CO2 27.6 mmol/L (21.0-32.0); Calcium 9.5 mg/dL (8.5-10.1); Calculated LDL 69 mg/dL (<100); Chloride 106 mmol/L (98-107); Cholesterol 145 mg/dL (<200); Estimated GFR 72.28 (mL/min/1.73m2); Glucose 111 mg/dL (74-106); HDL Cholesterol 53 mg/dL (>or=50); Potassium 4.0 mmol/L (3.5-5.1); Sodium 142 mmol/L (136-145); TSH (W/Ref FT4) 1.26 uIU/mL (0.36-3.74); Triglyceride 117 mg/dL (<150)
== END 2025-07-15 01:20 | disposition home or self-care (01) ==
LOC: LOS 01:19
PROVIDERS: PCP Nurse Practitioner Family; Visit Provider Nurse Practitioner Family
DX: E03.9 Hypothyroidism, unspecified (principal); R73.03 Prediabetes; E78.5 Hyperlipidemia, unspecified; I25.10 Atherosclerotic heart disease of native coronary artery without angina pectoris
CPT/HCPCS: 36415; 80048; 80061; 83036; 84443

== ENCOUNTER → 2025-09-19 02:02 | Outpatient (CLI) | payer BC, SELFPAY ==
--- NOTE | 2025-09-19 08:47 | DI.MAMMO_ITS ---
Exam(s) MAMMO SCREENING EXAM: MAMMO SCREENING CLINICAL HISTORY: screening,z12.39 TECHNIQUE: Bilateral full field digital CC and MLO mammographic images were obtained with 3D tomosynthesis and utilizing computer aided detection (CAD). COMPARISON: Comparison is made with prior examinations. FINDINGS: Masses/Architectural Distortion: No suspicious masses or areas of architectural distortion are present. Microcalcifications: No suspicious pleomorphic-type are seen. Skin Thickening/Nipple Retraction: None. IMPRESSION: 1. No significant interval change with no specific features of malignancy noted. 2. Unless there is more urgent need, screening mammography is recommended, as per [employer] [place] [employer] guidelines. BI-RADS Category 1 - Negative Breast Density - Category B - There are scattered areas of fibroglandular density. Breast density Category C or D implies that the patient has dense breast tissue. Dense breast tissue can make it harder to find cancer on a mammogram. Dense breast tissue is also associated with an increased risk of breast cancer. This information about the result of the mammogram report was provided to the patient to raise their awareness. Use this report when you speak with the patient about their risks for breast cancer, which includes their family history. At that time, you may recommend additional screening tests (Ultrasound or MRI) as these tests may add significant information. A negative radiographic report should not delay biopsy if a dominant or clinically suspicious mass is present. Up to ten percent of cancers are not identified on mammography. A negative report may reinforce clinical impression. Adenosis and dense breasts may obscure an underlying neoplasm. False positive reports average 6 to 10%. Patient will receive a letter notifying them of these results.
== END ==
PROVIDERS: PCP Nurse Practitioner Family; Visit Provider Nurse Practitioner Family
DX: Z12.31 Encounter for screening mammogram for malignant neoplasm of breast (principal)
CPT/HCPCS: 77063; 77067

== ENCOUNTER 2025-10-24 12:14 | Outpatient (REF) | payer BC, SELFPAY ==
--- NOTE | 2025-10-24 11:20 | PAPFT_PTH ---
PATIENT: Elham Webber LOC: [facility] U#:[id number] AGE/SX: 60/F ROOM: RE10/24/[address]: Cee Ron DO : 1965 BED: DIS: 10/24/2025 SPEC #: [id number] RECD: 10/24/25 13:20 STATUS: GEE RERaquel #: [id number] DEEPIKA: 10/24/25 11:[address]: Cee Ron DEPT: [facility] Cytology RECD BY: Caprice Dejesus ENTERED: 10/24/25 13:21 SP TYPE: PAPFT OTHR DR: Carol Kruger, WHEELMAN Tissues: 1 - CX/ENDOCX FOR PAP SMEARS Procedures: PAP THIN PREP/UVM Screening HPV DNA PROBE Comments: [id number] (HPV 16 & 18/45)
== END 2025-10-24 12:15 | disposition home or self-care (01) ==
LOC: LBN 12:14
PROVIDERS: PCP Nurse Practitioner Family; Visit Provider Obstetrics & Gynecology
DX: Z12.4 Encounter for screening for malignant neoplasm of cervix (principal)
CPT/HCPCS: 88142; 87624

== ENCOUNTER 2025-11-11 15:58 | Emergency (ER) | payer BC, SELFPAY ==
--- NOTE | 2025-11-11 16:00 | RT.EKG_ITS ---
APPROVED REPORT Exam: Resting ECG Reason for Exam: cardiac hx Patient Location: E HR:89 bpm ECG Measurements Heart Rate 89 AXIS SD 142 P 56 QRSd 88 QRS -15 QT 382 T 60 QTc 466 Conclusion Sinus rhythm...normal P axis, V-rate 60- 99
[2025-11-11 16:03] VITALS: BP 145/86; PULSE 93; RESP 16; TEMP 36.8; O2SAT 98
--- NOTE | 2025-11-11 16:15 | DI.CT_ITS ---
Exam(s) CT BRAIN NECK CTA EXAM: CT BRAIN NECK CTA CLINICAL HISTORY: left sided head pain, facial numbness. TECHNIQUE: Imaging Protocol: Axial CT angiography was performed with multi- slice acquisition and multi-planar and/or 3D reconstructions. CONTRAST MATERIAL: Intravenous: Omnipaque 350 contrast volume:70 mL COMPARISON: CT CT HEAD WO from 09/20/2018 FINDINGS: CT Head W/O and W: Ventricles and Extra axial spaces: Normal in size and morphology for the patient's age. Hemorrhage: None. Cerebral parenchyma: There is no evidence of an acute territorial infarct. Midline shift: None. Brainstem/Cerebellum: Normal. Calvarium: Normal. Visualized Paranasal sinuses/Mastoids: Clear. Soft Tissues: Unremarkable. Enhancement: Unremarkable. CTA Neck W: Common Carotid: Right: No dissection, occlusion or significant stenosis. Left: No dissection, occlusion or significant stenosis. External Carotid: Right: No occlusion or significant stenosis. Left: No occlusion or significant stenosis. Internal Carotid: Right: No dissection, occlusion or significant stenosis. Left: No dissection, occlusion or significant stenosis. Vertebral Artery: There is a dominant left vertebral artery. Right: No dissection, occlusion or significant stenosis. Left: No dissection, occlusion or significant stenosis. Lung Apices: Normal. Bones: Within normal limits for the patient's age. Soft Tissues: Normal. Thyroid gland: Unremarkable. CTA Brain W: Internal Carotid Arteries: There is mild atherosclerotic calcification in the cavernous portion of the right internal carotid artery. There is no significant stenosis or occlusion. Left internal carotid artery is unremarkable without stenosis, aneurysm or occlusion. Anterior Cerebral Arteries: Right: No aneurysm, occlusion or significant stenosis. Left: No aneurysm, occlusion or significant stenosis. Middle Cerebral Arteries: Right: No aneurysm, occlusion or significant stenosis. Left: No aneurysm, occlusion or significant stenosis. Posterior Cerebral Arteries: Right: No aneurysm, occlusion or significant stenosis. Left: No aneurysm, occlusion or significant stenosis. Vertebral Arteries: There is a dominant left vertebral artery. Right: No aneurysm, occlusion or significant stenosis. Left: No aneurysm, occlusion or significant stenosis. Basilar Artery: No aneurysm, occlusion or significant stenosis. IMPRESSION: 1. No large vessel occlusion or significant stenosis on the CT angiography of the head. 2. No acute intracranial process. 3. No occlusion or significant stenosis on the CT angiography of the neck. 4. The preliminary [facility] report was reviewed. RADIATION DOSE DELIVERED: 2,110.14mGy.cm Total DLP DATA REPOSITORY: All CT scans at this facility are submitted to the National Radiology Data Registry (NRDR) Dose Index Registry (DIR) with the [employer] (ACR). RADIATION OPTIMIZATION: All CT scans at this facility use at least one of these dose optimization techniques: automated exposure control; mA and/or kV adjustment per patient size (includes targeted exams where dose is matched to clinical indication); or iterative reconstruction.
--- NOTE | 2025-11-11 16:21 | W.ED.GENAD ---
Discharge Plan Disposition Patient Disposition: Home Condition: Stable Discharge Details Clinical Impression: Facial numbness Primary Care Provider: Carol Kruger ED Provider: Salas Botello Home Meds and New Rx's Prescriptions: Continued sertraline 50 mg tablet 50 mg PO DAILY Qty: 90 3RF metoprolol succinate 25 mg tablet extended release 24 hr 25 mg PO DAILY Qty: 90 3RF levothyroxine 112 mcg tablet 112 mcg PO DAILY Qty: 90 3RF amlodipine 10 mg tablet 10 mg PO DAILY Qty: 90 3RF clobetasol 0.05 % ointment 1 applic topical BID PRN (Reason: irritation) Qty: 60 3RF Centrum Silver 1 EACH tablet 1 ea PO DAILY meclizine 25 mg tablet 25 mg PO TID PRN (Reason: dizziness) Qty: 60 1RF aspirin 81 mg tablet,delayed release (DR/EC) 81 mg PO DAILY Qty: 90 3RF atorvastatin 80 mg tablet 80 mg PO DAILY nitroglycerin [Nitrostat] 0.4 mg Tablet, Sublingual 0.4 mg sublingual PRN PRN Discharge Instructions Additional Instructions: Your CAT scan and blood work did not show any emergent concerning findings. There is no signs of stroke. Follow-up with your primary care provider next week. This could be trigeminal neuralgia which can be managed by your primary care provider. If you feel more ill or have new symptoms such as high fevers or weakness return to the emergency department for reevaluation. Stand Alone Forms: Portal Information HPI General Mode of arrival: ambulatory. Date/Time Provider Initiated Documentation: 11/11/25 16:01. Limitations to Documentation: no limitations. Information obtained by: patient. History of Present Illness 60 year old F presents to the emergency department with the chief complaint of left jaw/head pain, facial numbness, described as moderate, Quality is described as aching, and is localized to the head and face. Patient reports no radiation. Patient started experiencing this week(s) (1) and it has been constant. No relieving factors improve symptom(s), No exacerbating factors reported . Patient notes denies chest pain and fever/chills. Patient did receive the following treatments prior to arrival, none Related Data Home Medications ?Medication ?Instructions ?Recorded ?Confirmed [id number] acid 0.4 1 ea PO DAILY 08/14/17 11/11/25 mg-lycopene 300 mcg-lutein 250 mcg tablet (Centrum Silver) nitroglycerin 0.4 mg sublingual 0.4 mg sublingual PRN PRN 08/14/22 11/11/25 tablet (Nitrostat) meclizine 25 mg tablet 25 mg PO TID PRN dizziness #60 tabs 06/02/23 11/11/25 sertraline 50 mg tablet 50 mg PO DAILY #90 tabs 01/14/25 11/11/25 aspirin 81 mg tablet,delayed 81 mg PO DAILY #90 tabs 03/17/25 11/11/25 release clobetasol 0.05 % topical ointment 1 applic topical BID PRN 03/22/25 11/11/25 irritation #60 grams atorvastatin 80 mg tablet 80 mg PO DAILY 07/14/25 11/11/25 amlodipine 10 mg tablet 10 mg PO DAILY #90 tabs 07/20/25 11/11/25 levothyroxine 112 mcg tablet 112 mcg PO DAILY #90 tabs 07/20/25 11/11/25 metoprolol succinate 25 mg 25 mg PO DAILY #90 tabs 07/20/25 11/11/25 tablet,extended release 24 hr Previous Rx's ?Medication ?Instructions ?Recorded meclizine 25 mg tablet 25 mg PO TID PRN dizziness #60 tabs 06/02/23 sertraline 50 mg tablet 50 mg PO DAILY #90 tabs 01/14/25 aspirin 81 mg tablet,delayed 81 mg PO DAILY #90 tabs 03/17/25 release clobetasol 0.05 % topical ointment 1 applic topical BID PRN 03/22/25 irritation #60 grams amlodipine 10 mg tablet 10 mg PO DAILY #90 tabs 07/20/25 levothyroxine 112 mcg tablet 112 mcg PO DAILY #90 tabs 07/20/25 metoprolol succinate 25 mg 25 mg PO DAILY #90 tabs 07/20/25 tablet,extended release 24 hr Allergies Allergy/AdvReac Type Severity Reaction Status Date / Time diphenhydramine HCl (From AdvReac Mild can't Verified 11/11/25 16:11 Benadryl) function General Stated Complaint: CVA/TIA BRIONNA: 3 Review of Systems All systems reviewed & are unremarkable except as noted in HPI and below Constitutional Constitutional: Denies chills, Denies fever(s) and Denies weakness ENT Ears, Nose, Mouth, and Throat: Reports facial pain and Reports tinnitus Cardiovascular Cardiovascular: Denies chest pain and Denies dyspnea Respiratory Respiratory: Denies cough and Denies dyspnea Gastrointestinal Gastrointestinal: Denies abdominal pain, Denies nausea and Denies vomiting Musculoskeletal Musculoskeletal: Reports numbness Neurologic Neurologic: Reports numbness and Denies weakness Exam Const General: no acute distress Orientation: alert HENND Head: normal to inspection Ears: external ears normal, TM's normal bilaterally, EAC's normal, mastoids normal and no periauricular adenopathy General nose exam: external nose normal Face and sinus: normal facial exam and sinuses nontender Mouth: moist mucous membranes Throat: posterior oropharynx normal and uvula midline Eyes General: appearance normal, both eyes and all related structures Neck Neck: normal visual inspection Resp Effort & Inspection: normal respiratory effort and able to speak in complete sentences Cardio Rate: regular rate Skin General skin exam: no rashes or lesions noted Neuro General: patient alert and patient oriented x3 Cranial Nerves: CN's II-XI intact bilaterally Cognition: normal cognition Speech: speech normal Gait: normal gait Motor: muscle tone normal throughout Sensory Exam: no sensory deficits noted Extrem General: normal to inspection Psych Mental Status: mental status grossly normal Course Vital Signs Vital signs: Vital Signs Temperature 36.8 C 11/11/25 16:03 Pulse 93 H 11/11/25 16:03 Respiratory Rate 16 11/11/25 16:03 Blood Pressure 145/86 H 11/11/25 16:03 Pulse Oximetry 98 11/11/25 16:03 Temperature 36.8 C 11/11/25 16:03 Pulse 93 H 11/11/25 16:03 Respiratory Rate 16 11/11/25 16:03 Blood Pressure 145/86 H 11/11/25 16:03 Pulse Oximetry 98 11/11/25 16:03 Oxygen Delivery Method Room Air 11/11/25 16:03 Oxygen Flow Rate 0 11/11/25 16:03 Medical Decision Making 60-year-old female with a history of coronary artery disease, hypertension, who comes in with chief complaint of 1 week of left jaw pain, ear pain, left-sided headache and subjective numbness on the left jaw and cheek. Denies any fevers, chest pain, difficulty breathing, weakness, vision changes or speech changes. She is ambulatory with a normal gait on arrival. She has no motor or sensory deficits of her extremities. Cranial nerves II through XII are intact. She has no visible abscesses in her mouth. She has no submandibular swelling or restricted neck movements. She has a normal posterior pharynx with a midline uvula. Normal ear exam bilaterally. She has intact sensation on exam but states it feels slightly different in the left side. I suspect she could have trigeminal neuralgia but given her age and history we will obtain CBC CMP troponins and a CTA of the neck and head as she has had symptoms for a week so I would expect findings of a CVA to have developed at this point. Patient's lab work shows no emergent findings, LFTs are elevated but this has been consistent with past lab values and she sees her PCP for this. CTA shows no concerning findings. I suspect trigeminal neuralgia. She will follow-up with her PCP and return precautions given. Differential Diagnosis Differential Diagnosis: trigeminal neuralgia, tmj disorder Lab Data Lab results reviewed: Yes I reviewed the patient's lab results. ECG Data Attestation: I personally reviewed and interpreted this ECG (s) as follows: Prior ECG tracings: available for review Interpretation: Sinus rhythm, rate of 89, no STEMI Quality:SDOH Health Related Social Needs: Health related social needs inadequate housing daily activities PFSH All Active Problems (Updated 11/11/25 @ 19:15 by Salas Botello MD) Facial numbness (Acute) Coronary artery disease (Chronic) S/p ANGELES to LAD 08/08, POBA to OM 2022 Obstructive sleep apnea (Chronic) PSG 08/2016 Hypothyroidism (Chronic) Hyperlipidemia (Chronic) Hypertension (Chronic) Prediabetes (Chronic) Obesity (Chronic) Major depressive disorder, recurrent (Chronic) Irritable bowel syndrome (Chronic) Migraine headache without aura (Chronic) Elevated alkaline phosphatase level (Chronic) Chronic, normal GGT, bone density scan, no concerning bony pain, normal calciums Essential tremor (Chronic) Right carpal tunnel syndrome (Chronic) Mild on EMG testing 03/05 Anogenital lichen sclerosus (Chronic) Allergic rhinitis (Chronic) Bilateral sensorineural hearing loss (Chronic) Dysphagia (Chronic) Medical History BPPV (benign paroxysmal positional vertigo) Tubular adenoma of colon Surgical History S/P coronary artery stent placement (08/08/22) ANGELES to LAD Status post laparoscopic supracervical hysterectomy (~2008) For AUB S/P colonoscopy (01/29/22) History of esophagogastroduodenoscopy (07/31/16) Status post cholecystectomy S/P left knee arthroscopy (05/15/16) With microfracture of chondral lesion of medial femoral condyle and partial medial meniscectomy Family History Mother Essential hypertension Alzheimer disease IBS (irritable bowel syndrome) Father , at 54 of colon cancer Colon cancer Sister No problems noted. Brother Essential hypertension Son Depression Son No problems noted. 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 [employer] Pets and animals: Yes Pets and animals: cat(s), dog(s) and farm animals Current gender identity: female What is your relationship status?: How often do you talk on the phone with friends or family?: decline to answer How often do you get together with friends or relatives?: decline to answer How often do you attend quaker or mandaeism services?: decline to answer Do you belong to any clubs or organized social groups?: decline to answer Panel score (0-1 are the most socially isolated patients): 1 What type of physical activity do you participate in: decline to answer Duration: 45-60 minutes/day Frequency: 3-4 times per week Cherelle/Bahai: [employer] Special cherelle needs: No Seatbelt use: always Helmet use: Yes Helmet use: always Do you feel safe at home: Yes Do you feel safe in your relationship?: Yes Additional Social history: Lives with and son in [place] History History 3 Para 2 Hx # Term Pregnancies Multiple births Hx # Pregnancies Ectopic pregnancies AB induced Hx Number of Living Children 2 AB spontaneous 1
[2025-11-11 16:29] VITALS: RESP 16
[2025-11-11 16:31] LABS: Abs Immature Grans 0.02 10^3/uL (0.0-0.06); HCT 44.5 % (36.0-46.0); HGB 15.0 g/dL (11.2-15.7); Immature Grans % 0.3 %; MCH 30.5 pg (27.0-33.0); MCHC 33.7 % (32.0-36.0); MCV 91 fL (80-95); MPV 8.5 fL (8.0-11.0); Platelet Count 357 10^3/uL (130-400); RBC 4.91 10^6/uL (3.93-5.22); RDW 12.9 % (11.7-14.6); RDW-SD 42.4 fL; WBC 6.61 10^3/uL (4.4-10.8)
[2025-11-11 16:46] LABS: INR 1.1 (0.9-1.1); PTT Activated 25.3 sec (20.6-30.2); Prothrombin Time 10.6 sec (9.1-11.1)
[2025-11-11 16:53] LABS: ALT 99 U/L (10-49); AST 67 U/L (<34); Albumin 4.8 g/dL (3.2-5.0); Alkaline Phosphatase 164 U/L (46-116); Anion Gap 10.9 mmol/L (3-11); BUN 12 mg/dL (9-23); Bilirubin, Total 0.6 mg/dL (0.2-1.2); CO2 25.1 mmol/L (20.0-31.0); Calcium 9.7 mg/dL (8.3-10.6); Chloride 104 mmol/L (98-107); Glucose 110 mg/dL (74-106); Magnesium 2.2 mg/dL (1.6-2.6); Potassium 3.9 mmol/L (3.5-5.1); Sodium 140 mmol/L (136-145); Total Protein 8.4 g/dL (5.7-8.2)
[2025-11-11 16:57] LABS: Troponin I < 3 ng/L (<35)
[2025-11-11] MEDS: Normal Saline - Diluent 50 ML VIAL IJ (17:22)
[2025-11-11] MEDS: Normal Saline Flush 10 ML SYR IVP (17:23)
[2025-11-11] MEDS: Omnipaque 350 MG/ML 100 ML BTL IJ (17:34)
[2025-11-11 17:51] LABS: Troponin I < 3 ng/L (<35)
--- NOTE | 2025-11-11 19:02 | DI.VRAD_ITS ---
PROCEDURE INFORMATION: Exam: CTA Head Without And With Contrast, Arteriography Exam date and time: 11/11/2025 5:34 PM Age: 60 years old Clinical indication: Numbness and other: Left sided head pain, facial numbness TECHNIQUE: Imaging protocol: Computed tomographic angiography of the head without and with contrast. Exam focused on the arteries. 3D rendering (Not supervised by radiologist): MIP and/or 3D reconstructed images were created by the technologist. Contrast material: OMNIPAQUE 350; Contrast volume: 70 ml; Contrast route: INTRAVENOUS (IV); COMPARISON: US THYROID 03/04/2025 8:58 AM FINDINGS: ANTERIOR CIRCULATION: Right internal carotid artery: The right internal carotid artery is patent through the carotid siphon. No significant stenoses. Right middle cerebral artery: The right middle cerebral artery is patent. No occlusion aneurysm or AV malformation. Right anterior cerebral artery: The right A1 segment is patent. There is a patent anterior communicating artery. The right anterior cerebral artery is unremarkable beyond the anterior communicating artery. Left internal carotid artery: The left internal carotid artery is patent through the carotid siphon. No significant stenoses. Left middle cerebral artery: The left middle cerebral artery is patent. No occlusion aneurysm or AV malformation. Left anterior cerebral artery: The left A1 segment is patent. The left anterior cerebral artery is unremarkable beyond the anterior communicating artery. POSTERIOR CIRCULATION: Right vertebral artery: The right intradural vertebral artery is attenuated but patent. Left vertebral artery: The left intradural vertebral artery is dominant and patent. Basilar artery: The basilar artery shows no aneurysm or significant stenoses. Right posterior cerebral artery: The right posterior cerebral artery is intact. Left posterior cerebral artery: The left posterior cerebral artery is intact. Venous sinuses: No abnormal filling defects identified in the superior sagittal sinus, the straight sinus, transverse or sigmoid sinuses. HEAD: Brain: There is mild diffuse cortical atrophy. No acute infarct, hemorrhage or mass lesion identified. There is no midline shift or mass lesion. Cerebral ventricles: The ventricles are unremarkable. Bones: No calvarial fracture. Paranasal sinuses: The paranasal sinuses are clear. Mastoid air cells: The mastoid air cells are clear. Soft tissues: No scalp hematomas. IMPRESSION: 1. No large vessel occlusion of the [id number]. 2. Patent venous sinuses. 3. No acute parenchymal infarct hemorrhage or abnormal enhancing lesion identified. 4. No calvarial fracture PROCEDURE INFORMATION: Exam: CTA Neck Without And With Contrast Exam date and time: 11/11/2025 5:34 PM Age: 60 years old Clinical indication: Numbness and other: Left sided head pain, facial numbness TECHNIQUE: Imaging protocol: Computed tomographic angiography of the neck without and with contrast. Exam focused on the cervical segments of the vasculature. 3D rendering (Not supervised by radiologist): MIP and/or 3D reconstructed images were created by the technologist. Contrast material: OMNIPAQUE 350; Contrast volume: 70 ml; Contrast route: INTRAVENOUS (IV); COMPARISON: US THYROID 03/04/2025 8:58 AM FINDINGS: Right common carotid artery: The origin of the right common carotid artery is normal. There are no stenoses along its course. Right internal carotid artery: The internal carotid artery is normal. No stenoses. Right external carotid artery: The external carotid artery is unremarkable. Left common carotid artery: The origin of the left common carotid artery from the aortic arch is normal. No stenoses along its course. Left internal carotid artery: The origin of the left internal carotid artery is normal. Left external carotid artery: No stenoses of the external carotid artery. Right vertebral artery: The right vertebral artery is patent throughout. It is diffusely attenuated. Left vertebral artery: The left vertebral artery is patent throughout. It is dominant. Soft tissues: No abnormal soft tissue lesions of the neck. Bones/joints: There are mild diffuse degenerative changes of the cervical spine. No acute bony change identified. IMPRESSION: 1. No stenoses of the common carotid arteries or the internal carotid arteries. 2. The right vertebral artery is diffusely attenuated in the left vertebral artery is dominant but both are patent throughout. 3. No abnormal soft tissue lesions of the neck. REFERENCES: NASCET CRITERIA. The degree of stenosis in the cervical segment of the internal carotid artery is based on NASCET criteria. Normal is no stenosis. Mild is less than 50% stenosis. Moderate is 50-69% stenosis. Severe is 70% to 99% stenosis. Total occlusion is no detectable patent lumen. Dictated and Authenticated by: Trey Dobbs MD. Orderin Ayan Marina MD
[2025-11-11 19:22] VITALS: BP 134/73; PULSE 69; RESP 14; TEMP 36.2; O2SAT 97
== END 2025-11-11 19:16 | disposition home or self-care (01) ==
PROVIDERS: Emergency Provider Emergency Medicine; PCP Nurse Practitioner Family
DX: R20.0 Anesthesia of skin (principal); Z86.79 Personal history of other diseases of the circulatory system; Z59.10 Inadequate housing, unspecified; Z73.9 Problem related to life management difficulty, unspecified; R68.84 Jaw pain
CPT/HCPCS: 99284; 99285; 36415; 70496; 70498; 80053; 93005; 83735; 84484; 85025; 85610; 85730; 93010; J3490